=== PATIENT | female | born 1950 | race Caucasian/White ===

== ENCOUNTER 2021-07-29 09:48 | Observation (INO) ==
[2021-07-29] MEDS ORDERED: niCARdipine HCL INJ 2.5 MG/ML 10 ML AMP ONE (10:05)
[2021-07-29] MEDS ORDERED: HEPARIN (PORCINE) 1000 UNIT/ML 10 ML (CATH LAB USE ONLY) ONE (10:05)
[2021-07-29] MEDS ORDERED: MIDAZOLAM HCL 1 MG/ML 2ML VIAL ONE ×3 (10:05→11:37)
[2021-07-29] MEDS ORDERED: fentaNYL citrate 100 MCG/2 ML VIAL ONE ×3 (10:05→12:48)
[2021-07-29] MEDS ORDERED: NITROGLYCERIN/D5W 100MCG/ML 20ML SYR ONE (10:07)
[2021-07-29] MEDS ORDERED: LIDOCAINE 1% LOCAL 20 ML VIAL ONE ×2 (10:08→10:54)
--- NOTE | 2021-07-29 10:29 | History & Physical Bridge Note ---
Date of Service July 29, 2021 History & Physical Bridge Note I have examined the patient, reviewed the History & Physical and in the interval since the performance of the History & Physical I have noted the following changes of clinical significance: no changes noted I have explained the risk, benefit and intent of the procedure and she is willing to proceed.
--- NOTE | 2021-07-29 10:29 | Pre Anesthesia Assessment ---
Date of Service July 29, 2021 Pre Sedation Assessment Vital Signs Temp Pulse Resp BP Pulse Ox 07/29/21 10:22 36.9 C 84 16 180/74 H 98 Pre-Sedation Airway Assessment Smoking Status: Never smoker Short, Thick Neck: No Thyromental Distance: > or= 3.5 Finger Breadths Oral Cavity: + WNL Mallampati Class: IV ASA: ASA3 NPO Status Date of Last Intake of Fluids: 07/28/21 Time of Last Intake of Fluids: 20:00 Date of Last Intake of Solid Food: 07/28/21 Time of Last Intake of Solid Foods: 20:00 Notes The planned sedation has been discussed with the patient. Informed Consent was obtained. I have identified the patient, determined the appropriateness of sedation and have assessed the patient immediately prior to the procedure. All medicine(s) and interventions are by my order.
[2021-07-29] MEDS ORDERED: SODIUM CHLORIDE 0.9% 1000ML 1,000 ML IV SCH (10:30)
--- NOTE | 2021-07-29 11:18 | Cardiac Catheterization ---
Date of Service July 29, 2021 Cardiac Cath Report Cardiac Cath Report Procedure: 1. Coronary angiography 2. Left heart catheterization 3. Left ventriculogram History: This is a 71-year-old female with known coronary artery disease and a previous LAD stent approximately 10 years ago. She has been having classic exertional angina for approximately 6 months. In early June she underwent an exercise stress echocardiogram which was abnormal. Although the stress echocardiogram and EKG were negative she did reproduce her chest pain during exercise which limited her exercise time. I scheduled her for cardiac catheterization after that study was completed but the patient developed Covid and was sick for several weeks. She did recover and return to the office at which time her angina was accelerating. She has been referred for cardiac catheterization. Procedure summary: After informed consent was obtained the patient was brought to the cardiac catheterization lab where she was prepped and draped in the usual manner for a femoral approach. Previously the patient had an attempted right radial access but the wire could not traverse beyond the elbow. Access was obtained from the right femoral artery using a retrograde Salinger technique. Preformed 5 Vietnamese diagnostic catheters were utilized for the coronary angiograms. A 5 Vietnamese pigtail catheter was utilized for the left ventriculogram and left heart pressures. Following the procedure the patient underwent coronary intervention and was admitted in stable condition. ACC data: Start time 10:51 AM End time 11:07 AM Opening aortic pressure 165/83 Closing aortic pressure 189/92 LV pressure 190/38 Sedation 2 mg intravenous Versed IV fluid 130 cc normal saline Contrast 95 cc Visipaque Fluoroscopy time 2.8 minutes Radiation 687 mGy DAP 68.53 Fritz per centimeter squared Right dominant system AUC score 9 Coronary angiography: Selective injections of the left coronary artery revealed the left main trunk to be patent. There is a prior stent in the proximal LAD which is patent. In the midportion of the LAD there is a high-grade ulcerated stenoses the LAD continues on around the apex of the heart. The remainder the LAD is widely patent. Left circumflex artery consists principally of a large lateral marginal branch. The left circumflex artery is widely patent. Injections of the right coronary artery revealed to be dominant. The right coronary artery is widely patent. Left ventriculogram: Injections into the left ventricle reveal it to be of normal size with normal systolic function. The estimated left ventricular ejection fraction is 60%. Mitral valve is competent. The aortic root and ascending aorta are of normal size and morphology. Pulling the catheter back there is no significant gradient across the aortic valve. Summary: The previous stent in the proximal LAD is patent however, there is a high-grade ulcerated stenosis of the LAD in its mid segment. The remainder the coronary anatomy is widely patent. Normal LV function. Recommendations: Recommendations are for coronary intervention on the LAD.
--- NOTE | 2021-07-29 12:14 | Post Anesthesia Assessment ---
Date of Service July 29, 2021 Post Sedation Assessment Vital Signs Temp Pulse Resp BP Pulse Ox 07/29/21 10:22 98.4 F 84 16 180/74 H 98 Recovery Score Activity: Moves 4 extremities Respiration: Deep Breath/Cough Circulation: +/-20% PreAnes Value Consciousness: Fully Awake Oxygen Saturation: O2 needed for >90% Discharge Sedation Level of Care: Fast Track Phase II Post Sedation Plan On clinical assessment, the patient appears to have tolerated the sedation without complications. Patient is recovering as anticipated. Patient will continue to be monitored by nursing and may be discharged when sedation discharge criteria are met per below protocol. Upon Completions of procedure up to 15 minutes continue every 5 minute vital signs and the P.A.R. score; then discharge to a Phase I or Fast Track to Phase I I per the following guidelines: * Discharge Patient to appropriate Phase II area if PAR is 8 or greater or return to pre- procedure baseline. The post - procedure orders will be as directed. * If PAR score is less than 8 or not return to pre-procedure baseline then patient will follow Phase I monitoring till PAR is reached for Phase II. The Phase I may be done in procedure room or may call to secure a Phase I area. * If naloxone or flumazenil are used for reversal, hold in Phase I for continued monitoring from when last reversal dose was given for a minimum of 60 minutes or longer pending the nurse and/or physician discretion of patient condition before discharge to Phase II. Please call the Sedation Physician to re-evaluate and complete post-note for discharge to Phase II area. Do NOT discharge from procedure sedation or Phase 1 until post- sedation evaluation note is complete by procedure /sedation MD Sedation Discharge Instructions to be given to the patient at discharge to home.
--- NOTE | 2021-07-29 12:16 | Cardiac Catheterization ---
[facility] Data: Laboratory Chemical Assistant Cardiac Status Clinical evaluation leading to the procedure CAD Presenation: Positive Stress Test and Unstable angina Anginal Classification: CCS III Heart Failure: No Cardiogenic Shock within 24 Hours: No Cardiac Arrest within 24 Hours: No Imaging Studies Past 6 Months: Yes Stress Studies Past 6 Months: Yes Diagnostic Physicians Name: Galdino Mendoza MD Closure Device Percutaneous Entry Location: Femoral Closure Device: Mynx Recommendations: PCI without planned CABG PCI Indication: + Stress Test and Unstable Angina Lesion Segment Name: mid LAD Culprit Artery: Yes Stenosis Prior to Rx (%): 95 Chronic Total Occlusion: No IVUS: No FFR: No Pre-Procedure JOHNNIE Flow: 3 Previously Treated Lesion: No Lesion Complexity: Non-High/Non-C Lesion Length (mm): 15 Thrombus Present: Yes Bifurcation Lesion: Yes Guidewire Across Lesion: Stenosis Post-Procedure (%): 0 Post-Procedure JOHNNIE Flow: 3 Devices(s) Deployed: Yes Yes Intraprocedure Events Significant Disection: No Perforation: No Cardiac Cath Procedure Full Procedure Date July 29, 2021 Pre-Procedure Diagnosis Pre-Procedure Diagnosis: Angina and Positive Stress Test AUC Score AUC Score: 7 Post-Procedure Diagnosis Post-Procedure Diagnosis: Severe CAD and Successful PCI Procedure(s) Performed Procedure(s) Performed: Coronary Angiography, PTCA and Drug Eluting Stent Keyboard Instrument Repairer Galdino Mendoza MD Seo Specialist(s) Deibler Estimated Blood Loss Estimated Blood Loss: 15 Medication(s) Medication(s): Clopidogrel, Fentanyl, Lidocaine 1%, Nicardipine, Nitroglycerin and Versed Summary of Findings Indication: Abnormal stress test, accelerating angina Access: 6 Fr right common femoral artery Catheters: EBU 3.5 guide Findings: For full details of patient's coronary angiography please see cath report dictated by Dr. Maldonado. Briefly, patient found to have severe mid LAD disease at the bifurcation of small to medium diagonal. Decision to proceed with PCI. -- PCI -- Antithrombotic therapy: Heparin, clopidogrel Procedure: Left main cannulated with EBU 3.5 guide Apparatus Engineering Technologist 50 wire passed across lesion into distal vessel Mid LAD lesion predilated with 2.0 compliant balloon Dilated lesion stented with 3.0 x 18 mm [place] drug-eluting stent Stent post-dilated with 3.5 noncompliant balloon Jailed diagonal wired with harbor pilot 50 wire Ostial/proximal diagonal dilated with 2.0 balloon through stent struts. IC vasodilators administered for spasm Post procedure JOHNNIE 3 flow through LAD. Stent well expanded with minimal residual stenosis. Moderate residual ostial stenosis of diagonal but JOHNNIE-3 flow. No other apparent cardiac complications. Arterial Closure: Mynx Summary: 1. Successful PCI of mid LAD with single drug-eluting stent (3.0 x 18 mm [place]; postdilated with 3.5 NC). -PTCA of proximal jailed diagonal through stent struts with 2.0 balloon Recommendations: To PCU for continued monitoring Loaded with clopidogrel 600 mg in Laboratory Chemical Assistant Continue dual-antiplatelet therapy for at least 6 months Continue statin, and ASCVD risk factor modification Consult cardiac Rehab Hemodynamics Rest Ao:: 164/70/114 Final Ao: 152/68/120 LV: -- Recommendations Recommendations: PCI without planned CABG Specimens Specimens: None Radiation Exposure (mGy) 2649 Contrast (mls) 130 Drains Drains: none Anesthesia moderate [id number] Procedural Complication(s) None Disposition PCU I attest to the content of the Intraoperative Record and any orders documented therein. Any exceptions are noted below. [facility] Card Cath Procedure Codes Moderate Sedation Procedure 1: Sedation/Anesthesia: 15873 Mod Sedation by the same physician; Ea [id number] Minutes Stenting Procedure 1: Cardiovascular Stent Procedures: 87659 Perc transcatheter placement of intracoronary stent(s), with ang PG Care Time/CCT Total # of Minutes Spent Total Time Spent with Patient: Total time spent is greater than 50% in coordination of care (as documented) at patient's floor/unit and/or counseling patient:
[2021-07-29] MEDS ORDERED: CLOPIDOGREL BISULFATE 300 MG TAB ONE (12:25)
[2021-07-29] MEDS ORDERED: MoRPHine SULFATE 10 MG/ML CARP/VIAL IV PRN (12:33)
[2021-07-29] MEDS ORDERED: NITROGLYCERIN SL 0.4 MG/TAB TAB SL PRN (12:33)
[2021-07-29] MEDS ORDERED: ONDANSETRON INJ 2 MG/ML 2 ML VIAL IV PRN (12:33)
--- NOTE | 2021-07-29 13:03 | History & Physical Report ---
Date of Service July 29, 2021 Assessment & Plan (1) S/P cardiac cath: (2) Unstable angina: (3) CAD (coronary artery disease): Plan: Patient is 71 y/o F with PMH CAD s/p bare metal stent to LAD in 2010, HLD, CKD III presented to hospital today for cardiac catheterization. History unstable angina and had positive stress test outpatient. Today had cardiac cath with 95% stenosis to LAD s/p PCI with 1 CLINT Loaded with Plavix Continue aspirin, Plavix, recommended dual antiplatelet therapy for 6 months Continue metoprolol succinate On atorvastatin 10mg. Reported history statin intolerance in past (4) HLD (hyperlipidemia): Plan: Continue Atorvastatin, ezetimibe (5) CKD (chronic kidney disease), stage III: Plan: Baseline Cr: 1.0-1.1 Monitor renal functions, avoid nephrotoxic agents when possible DVT Prophylaxis SCDs Full Code as per discussion with pt Follows with Dr Fragoso for routine care Pt was seen and care coordinated with Dr Smith. See addendum History of Present Illness Chief Complaint: Unstable angina s/p cardiac cath Primary Care Provider: Ganga Fragoso MD Patient is 71 y/o F with PMH CAD s/p bare metal stent to LAD in 2010, HLD, CKD III presented to hospital today for cardiac catheterization. Patient with history unstable angina and had positive stress test outpatient. She has been using nitroglycerin 2-3 times a week. Today had cardiac cath with 95% stenosis to LAD s/p PCI with 1 CLINT. Post cath reported some chest discomfort which has improved. Denies fever/chills, diaphoresis, N/V/D/C, ROSSI, dizziness, syncope, vision changes, neck pain, SOB, orthopnea, palpitations, cough, sore throat, choking, otalgia, rhinorrhea, abdominal pain, paresthesias, weakness, extremity weakness, extremity edema, rashes, urinary symptoms. Allergies Allergy/AdvReac Type Severity Reaction Status Date / Time No Known Allergies Allergy Mild Unverified 01/12/18 09:16 Home Medications Medication Instructions Recorded Confirmed Type acetaminophen 500 mg tablet 1,000 mg TID 11/21/18 07/29/21 History coenzyme Q10 100 mg capsule 100 mg PO DAILY 11/21/18 07/29/21 History turmeric 500 mg DAILY 11/21/18 07/29/21 History zinc 50 mg tablet 50 mg PO DAILY 11/21/18 07/29/21 History aspirin 81 mg tablet 81 mg PO DAILY 07/29/21 07/29/21 History atorvastatin 10 mg tablet 10 mg PO HS 07/29/21 07/29/21 History cholecalciferol (vitamin D3) 25 25 mcg PO DAILY 07/29/21 07/29/21 History mcg (1,000 unit) tablet (Vitamin D3) ezetimibe 10 mg tablet 10 mg PO HS 07/29/21 07/29/21 History magnesium 1 tab PO DAILY 07/29/21 07/29/21 History metoprolol succinate 50 mg 50 mg PO DAILY 07/29/21 07/29/21 History tablet,extended release 24 hr nitroglycerin 0.4 mg sublingual 0.4 mg SUBLINGUAL UD PRN 07/29/21 07/29/21 History tablet omega-3 fatty acids-vitamin E 1 cap PO DAILY 07/29/21 07/29/21 History 1,000 mg capsule Past Med/Surg History Medical History (Updated 07/29/21 @ 13:28 by Belgica Espinoza PA-C) CAD (coronary artery disease) CKD (chronic kidney disease), stage III HLD (hyperlipidemia) Surgical History (Updated 07/29/21 @ 13:25 by Belgica Espinoza PA-C) H/O tubal ligation History of cataract surgery History of hysterectomy Hx of cardiac cath 2010- bare metal stent to LAD, [place] [facility] [place]P cardiac cath 07/29/21 - CLINT to LAD, Dr Mendoza, [facility] Family History (Updated 07/29/21 @ 13:26 by Belgica Espinoza PA-C) Brother Coronary heart disease Father Coronary heart disease Sister Breast cancer Mother Cancer Social History Smoking Status: Never smoker Hx Alcohol Use: No Hx Substance Use: No Preferred Language: Turkmen Communication Ability: Effective Dye Machine Operator Required: No Beliefs That Will Affect Care: None Current Living Situation: Spouse Other Information That Helps Us Care for You: No Feels Safe at Home: Yes Safety Concerns: Feels Safe At This Time Assistive Devices: None Review of Systems Review of Systems: All systems reviewed & are unremarkable except as noted in HPI & below Physical Exam Physical Exam: General: no distress, WDWN Head: normocephalic, atraumatic Eyes: conjunctiva non-injected, anicteric ENT: normal inspection external ears, nose, mucous membranes moist Neck: supple, trachea midline Lungs: clear, no respiratory distress, no wheezing/rhonchi/rales CV: RRR, no murmur, no pretibial edema Abd: normal BS, soft, non-tender Ext: no cyanosis, no calf tenderness Neuro: A&O x 3, no focal deficits noted, normal affect Skin: warm, dry, right groin with dressing in place that is dry Results & Data Results & Data ([facility]) Vital Signs (Past 12 Hours) Vital Signs Temp Pulse Resp BP Pulse Ox 07/29/21 12:45 72 14 171/74 H 98 07/29/21 12:30 72 16 162/74 H 99 07/29/21 12:15 72 16 167/72 H 98 07/29/21 10:22 36.9 C 84 16 180/74 H 98 Code Status & VTE Plan VTE Prophylaxis Plan VTE Prophylaxis will be ordered: Yes Supervising Physician Co-Signing Physician Notes I have seen and examined the patient and have discussed the case with the provider above. I agree with the assessment and plan as stated. 71 yo F with known CAD s/p stent in 2010 presented for elective cardiac catheterization after recent unstable angina. She had a femoral approach and post-operatively is doing well. She is reporting some substernal chest pain with radiation to her back that has been ongoing for the past several hours, however. She is just getting morphine now. Denies SOB or other symptoms. She is setting up to eat dinner now. Denies any left groin pain or swelling. She received a CLINT to LAD for 95% stenosis and underwent additional balloon angioplasty of a diagonal branch. Physical exam reveals a WNWD female in NAD who is mentating clearly and in no acute distress. Cardiac exam reveals S1/2 heard without murmurs, gallops or rubs. Extremities are warm and well-perfused. Right groin area assess with post procedure closure device in place. No post-op seroma or erythema is appreciated. Femoral pulse is 2+ intact and right leg is warm and well- perfused. Received a Plavix load 600mg in the ER. Cont with DAPT, morphine and nitro PRN for pain and daily EKG. Added Lovenox for DVT prophylaxis to start in am. Cont plan per cardiology. Jaclyn Smith DO [facility]
[2021-07-29] MEDS ORDERED: MoRPHine SULFATE 2 MG/ML CARP ONE (17:22)
[2021-07-29 19:35] LABS: Hematocrit (blood only) 35.8 % (37-47); Hemoglobin 11.7 g/dL (12.0-16.0); Mean Corpuscular Hemoglobin 31.2 pg (25-34); Mean Corpuscular Hgb Conc 32.7 g/dL (32-36); Mean Corpuscular Volume 95.5 fL (80-100); Mean Platelet Volume 9.4 fL (7.4-10.4); Platelet Count 220 K/uL (130-400); RDW Coefficient of Variation 13.6 % (11.5-14.5); RDW Standard Deviation 47.3 fL (36.4-46.3); Red Blood Count 3.75 M/uL (4.2-5.4); White Blood Count 10.15 K/uL (4.8-10.8)
[2021-07-29] MEDS: ACETAMINOPHEN 325 MG TAB PO PRN ×2 (19:35→23:25)
[2021-07-29 19:59] LABS: BUN Creatinine Ratio 23.2 (10-20); Calcium 8.8 mg/dl (8.5-10.1); Est GFR (African American) 65.5 ml/min; Est GFR (Non-African American) 56.5 ml/min; Potassium 4.1 mmol/L (3.5-5.1)
[2021-07-29 20:02] LABS: Troponin I 0.1 ng/ml (0-0.04)
[2021-07-29] MEDS ORDERED: ATORVASTATIN 10 MG TAB PO SCH (21:00)
[2021-07-29] MEDS ORDERED: EZETIMIBE 10 MG TABLET PO SCH (21:00)
[2021-07-29] MEDS: NITROGLYCERIN 2% OINTMENT 30GM TUBE EXT SCH (21:08)
[2021-07-30] MEDS: NITROGLYCERIN 2% OINTMENT 30GM TUBE EXT SCH ×2 (03:46→08:04)
[2021-07-30] MEDS: ACETAMINOPHEN 325 MG TAB PO PRN ×2 (04:00→10:47)
[2021-07-30 05:22] LABS: Basophils # (auto) 0.03 K/uL (0-0.2); Basophils % (auto) 0.5 %; Eosinophils # (auto) 0.28 K/uL (0-0.5); Eosinophils % (auto) 4.2 %; Hematocrit (blood only) 33.5 % (37-47); Immature Granulocytes # (auto) 0.01 K/uL (0.00-0.02); Immature Granulocytes % (auto) 0.2 %; Lymphocytes # (auto) 1.29 K/uL (1.2-3.4); Lymphocytes % (auto) 19.5 %; Mean Corpuscular Hemoglobin 31.4 pg (25-34); Mean Corpuscular Hgb Conc 32.8 g/dL (32-36); Mean Corpuscular Volume 95.7 fL (80-100); Mean Platelet Volume 9.6 fL (7.4-10.4); Monocytes # (auto) 0.72 K/uL (0.11-0.59); Monocytes % (auto) 10.9 %; Neutrophils # (auto) 4.29 K/uL (1.4-6.5); Neutrophils % (auto) 64.7 %; Platelet Count 223 K/uL (130-400); RDW Coefficient of Variation 13.6 % (11.5-14.5); RDW Standard Deviation 47.6 fL (36.4-46.3); White Blood Count 6.62 K/uL (4.8-10.8)
[2021-07-30 05:45] LABS: BUN Creatinine Ratio 23.5 (10-20); Calcium 8.8 mg/dl (8.5-10.1); Creatinine Clr Calc Pharmacy 60.6 ml/min; Est GFR (African American) 78.8 ml/min; Potassium 4.1 mmol/L (3.5-5.1)
[2021-07-30] MEDS ORDERED: ATORVASTATIN 10 MG TAB PO SCH (09:00)
[2021-07-30] MEDS ORDERED: OMEGA-3 (PURIFIED FISH OIL) 1 GM CAP PO SCH (09:00)
[2021-07-30] MEDS ORDERED: ENOXAPARIN INJ 40 MG/0.4 ML SYR SQ SCH (09:00)
[2021-07-30] MEDS ORDERED: ASPIRIN 81 MG ECTAB PO SCH (09:00)
[2021-07-30] MEDS ORDERED: METOPROLOL SUCC 50MG EXT REL TAB PO SCH (09:00)
[2021-07-30] MEDS ORDERED: CLOPIDOGREL BISULFATE 75 MG TAB PO SCH (09:00)
[2021-07-30] MEDS ORDERED: EZETIMIBE 10 MG TABLET PO SCH (09:00)
[2021-07-30] MEDS ORDERED: NON-FORMULARY MEDICATION (Coenzyme Q10 100 mg Capsule) PO SCH (09:00)
[2021-07-30] MEDS ORDERED: CHOLECALCIFEROL 1,000 UNITS 25 MCG TAB PO SCH (09:00)
--- NOTE | 2021-07-30 10:20 | Discharge Summary ---
Date of Service July 30, 2021 Admission HPI Per Admitting Provider Patient is 71 y/o F with PMH CAD s/p bare metal stent to LAD in 2010, HLD, CKD III presented to hospital today for cardiac catheterization. Patient with history unstable angina and had positive stress test outpatient. She has been using nitroglycerin 2-3 times a week. Today had cardiac cath with 95% stenosis to LAD s/p PCI with 1 CLINT. Post cath reported some chest discomfort which has improved. Denies fever/chills, diaphoresis, N/V/D/C, ROSSI, dizziness, syncope, vision changes, neck pain, SOB, orthopnea, palpitations, cough, sore throat, choking, otalgia, rhinorrhea, abdominal pain, paresthesias, weakness, extremity weakness, extremity edema, rashes, urinary symptoms. Admission Exam Per Admitting Provider General: no distress, WDWN Head: normocephalic, atraumatic Eyes: conjunctiva non-injected, anicteric ENT: normal inspection external ears, nose, mucous membranes moist Neck: supple, trachea midline Lungs: clear, no respiratory distress, no wheezing/rhonchi/rales CV: RRR, no murmur, no pretibial edema Abd: normal BS, soft, non-tender Ext: no cyanosis, no calf tenderness Neuro: A&O x 3, no focal deficits noted, normal affect Skin: warm, dry, right groin with dressing in place that is dry Principal Diagnosis (1) S/P cardiac cath: (2) Unstable angina: (3) CAD (coronary artery disease): (4) HLD (hyperlipidemia): (5) CKD (chronic kidney disease), stage III: Discharge Exam See below Discharge Data Allergies Allergy/AdvReac Type Severity Reaction Status Date / Time No Known Allergies Allergy Mild Unverified 01/12/18 09:16 Consultations 07/29/21 12:36 Consult Cardiac Rehabilitation Routine Procedures Performed Operation Date: 07/29/21 11:00 Actual Procedures s Cineradiography w/Routine Exam - Steve Maldonado, DO p Cath, Left with Cors and Vent - Steve Maldonado, DO p Drug Eluting Stent SGl Vessel - Parminder Mendoza MD s Placement Art Occlusive Device - Parminder Mendoza MD s POBA SGL Vessel - Parminder Mendoza MD Ordered Studies 07/29/21 07:16 CL Cath Imgs for PACS use only Routine Hospital Course (1) S/P cardiac cath: (2) Unstable angina: (3) CAD (coronary artery disease): Patient is 71 y/o F with PMH CAD s/p bare metal stent to LAD in 2010, HLD, CKD III presented to hospital today for cardiac catheterization. History unstable angina and had positive stress test outpatient. cardiac cath with 95% stenosis to LAD s/p PCI with 1 CLINT Loaded with Plavix Continue aspirin, Plavix, recommended dual antiplatelet therapy for 6 months Continue metoprolol succinate On atorvastatin 10mg. Reported history statin intolerance in past (4) HLD (hyperlipidemia): Continue Atorvastatin, ezetimibe (5) CKD (chronic kidney disease), stage III: Baseline Cr: 1.0-1.1, 0.85 today Monitor renal functions, avoid nephrotoxic agents when possible DVT Prophylaxis SCDs Full Code as per discussion with pt DC Home after seen by Dr Maldonado Total Time Total Time Spent Total Time Spent (In Minutes): 45 mins Total Time Includes: Examination of the Patient, Discharge Planning, Medication Reconciliation and Communication With Other Providers Discharge Plan Discharge Items Patient Disposition: Home - Self-Care Reason For Visit: CAD Discharge Diagnosis: (1) S/P cardiac cath: (2) Unstable angina: (3) CAD (coronary artery disease): (4) HLD (hyperlipidemia): (5) CKD (chronic kidney disease), stage III: Condition on Discharge: Good Activity: Resume your previous activity Lifting: No more than 5 pounds Lifting Comment: No lifting for 3 days, No driving for the days, you can be a passenger Bathing Comment: May Shower Sexual Activity: After one week Exercise/Sports: Wait until after follow-up appointment Driving/Machine Use: As above Weightbearing: Full weightbearing Non-emergency contact: Primary Care Provider and Frame Operator Follow-up/Referrals: Steve Maldonado DO [Frame Operator] - (Call for appointment or as directed by Dr Maldonado) Ganga Fragoso MD [Primary Care Provider] - Diet: Heart Healthy Addtl Attending Provider Instructions: None Pending Studies at Discharge: No Stand-Alone Forms: My Next Points, Smoking Cessation Medications and DC Order Prescriptions: New clopidogrel 75 mg Tablet 75 mg PO QAM Qty: 90 RF: 0 nitroglycerin [Nitrostat] 0.4 mg Tablet, Sublingual 0.4 mg sublingual PRN PRN (Reason: chest pain) Qty: 30 RF: 0 Fish Oil 340-1,000 mg Capsule 1 g PO DAILY Qty: 30 RF: 0 cholecalciferol (vitamin D3) 25 mcg (1,000 unit) Capsule 1,000 unit PO DAILY Qty: 30 RF: 0 Continued turmeric 500 mg 500 mg DAILY RF: 0 zinc 50 mg Tablet 50 mg PO DAILY RF: 0 coenzyme Q10 100 mg Capsule 100 mg PO DAILY RF: 0 acetaminophen 500 mg Tablet 1,000 mg TID RF: 0 aspirin 81 mg Tablet 81 mg PO DAILY RF: 0 atorvastatin 10 mg Tablet 10 mg PO HS RF: 0 nitroglycerin 0.4 mg Tablet, Sublingual 0.4 mg sublingual UD PRN (Reason: Chest Pain) RF: 0 ezetimibe 10 mg Tablet 10 mg PO HS RF: 0 magnesium Tablet 1 tab PO DAILY RF: 0 metoprolol succinate 50 mg Tablet Extended Release 24 Hr 50 mg PO DAILY Qty: 30 RF: 0 Discontinued Fish Oil 1,000 mg Capsule 1 cap PO DAILY RF: 0 cholecalciferol (vitamin D3) [Vitamin D3] 25 mcg (1,000 unit) Tablet 25 mcg PO DAILY RF: 0 Discharge Orders: Discharge Order (Routine); Ordered 07/30/21 Ordered By: Walter Ansari/Other Patient Handouts: Carotid Artery Stenting Dc Admission Data Admit Date/Time: 07/29/21 12:37 Attending Provider: Walter Bruno Admit Provider: Steve Maldonado Primary Care Provider: Ganga Fragoso
--- NOTE | 2021-07-30 12:06 | Cardiology Progress Note ---
Date of Service July 30, 2021 Assessment & Plan (1) S/P cardiac cath: Plan: Stent placed mid LAD Plan: The patient can be discharged home from a cardiology standpoint. She should continue her current outpatient atorvastatin and Zetia dose. She will require Plavix and aspirin for a year. Admission and Anticipated Discharge Date Admission Date: July 29, 2021 Subjective The patient had some chest pain immediately after the stent placement but thereafter and through the night she has had no chest pain and feels well. Review of Systems Review of Systems: Review of Systems: See HPI for pertinent positives. All other 10 point review of systems are negative. Physical Exam Physical Exam: General: no acute distress and stated age Head: normocephalic, no masses, lesions, tenderness or abnormalities Eyes: conjunctiva are pink and non-injected, sclera clear Neck: supple, no adenopathy, no bruits, normal jugular venous pulse, no hepatojugular reflux Chest: normal shape and normal respiratory effort Lungs: clear to auscultation and percussion Cardiac Exam: - regular rate & rhythm, no murmurs gallops or rubs - normal S1, normal S2 Pulses: 2(+) throughout Abdomen: abdomen soft, non-tender, no abnormal masses and no hepatosplenomegaly Musculoskeletal: no gait disturbance, no joint inflammation, no deforming arthritis Extremities: no edema and no cyanosis, Cath site looks good Neuro: grossly normal exam Results & Data ([facility]) Vital Signs (Past 12 Hours) Vital Signs Temp Pulse Resp BP Pulse Ox 07/30/21 11:00 77 15 146/65 H 96 07/30/21 07:57 36.8 C 83 16 130/54 L 95 Laboratory Results Laboratory Results - last 24 hr 07/29/21 07/29/21 07/29/21 11:40 12:15 16:45 WBC RBC Hgb Hct MCV MCH MCHC RDW Std Deviation RDW Coeff of Kamala Plt Count MPV Immature Gran % (Auto) Neut % (Auto) Lymph % (Auto) [place] % (Auto) Eos % (Auto) Baso % (Auto) Neut # (Auto) Lymph # (Auto) [place] # (Auto) Eos # (Auto) Baso # (Auto) Immature Gran # (Auto) Activ Coag Time Kaolin 297 H Sodium Potassium Chloride Carbon Dioxide Anion Gap BUN Creatinine Est Cr Clr Drug Dosing Est GFR ( Amer) Est GFR (Non-Af Amer) BUN/Creatinine Ratio Glucose Calcium Troponin I Triglycerides Cholesterol LDL Cholesterol, Calc VLDL Cholesterol, Calc HDL Cholesterol Cholesterol/HDL Ratio Nasal Screen MRSA (PCR) Negative SARS-CoV-2, RNA, NAAT NEGATIVE 07/29/21 07/29/21 07/30/21 19:24 19:24 04:34 WBC 10.15 RBC 3.75 L Hgb 11.7 L Hct 35.8 L MCV 95.5 MCH 31.2 MCHC 32.7 RDW Std Deviation 47.3 H RDW Coeff of Kamala 13.6 Plt Count 220 MPV 9.4 Immature Gran % (Auto) Neut % (Auto) Lymph % (Auto) [place] % (Auto) Eos % (Auto) Baso % (Auto) Neut # (Auto) Lymph # (Auto) [place] # (Auto) Eos # (Auto) Baso # (Auto) Immature Gran # (Auto) Activ Coag Time Kaolin Sodium 135 L 135 L Potassium 4.1 4.1 Chloride 104 105 Carbon Dioxide 26 25 Anion Gap 5 5 BUN 23 20 Creatinine 0.99 0.85 Est Cr Clr Drug Dosing 52.0 60.6 Est GFR ( Amer) 65.5 78.8 Est GFR (Non-Af Amer) 56.5 68.0 BUN/Creatinine Ratio 23.2 H 23.5 H Glucose 102 H 93 Calcium 8.8 8.8 Troponin I 0.10 H* Triglycerides 110 Cholesterol 131 LDL Cholesterol, Calc 66 VLDL Cholesterol, Calc 22 HDL Cholesterol 43 Cholesterol/HDL Ratio 3.0 Nasal Screen MRSA (PCR) SARS-CoV-2, RNA, NAAT 07/30/21 04:34 WBC 6.62 RBC 3.50 L Hgb 11.0 L Hct 33.5 L MCV 95.7 MCH 31.4 MCHC 32.8 RDW Std Deviation 47.6 H RDW Coeff of Kamala 13.6 Plt Count 223 MPV 9.6 Immature Gran % (Auto) 0.2 Neut % (Auto) 64.7 Lymph % (Auto) 19.5 [place] % (Auto) 10.9 Eos % (Auto) 4.2 Baso % (Auto) 0.5 Neut # (Auto) 4.29 Lymph # (Auto) 1.29 [place] # (Auto) 0.72 H Eos # (Auto) 0.28 Baso # (Auto) 0.03 Immature Gran # (Auto) 0.01 Activ Coag Time Kaolin Sodium Potassium Chloride Carbon Dioxide Anion Gap BUN Creatinine Est Cr Clr Drug Dosing Est GFR ( Amer) Est GFR (Non-Af Amer) BUN/Creatinine Ratio Glucose Calcium Troponin I Triglycerides Cholesterol LDL Cholesterol, Calc VLDL Cholesterol, Calc HDL Cholesterol Cholesterol/HDL Ratio Nasal Screen MRSA (PCR) SARS-CoV-2, RNA, NAAT Medications Administered Current Inpatient Medications Acetaminophen (Acetaminophen 325 Mg Tab) 650 mg PO Q4H PRN PRN Reason: MILD Pain (Scale 1,2,3) Stop: 08/28/21 12:32 Last Admin: 07/30/21 10:47 Dose: 650 mg Documented by: Aspirin (Aspirin 81 Mg Ectab) 81 mg PO [facility] Stop: 08/29/21 08:59 Last Admin: 07/30/21 08:00 Dose: 81 mg Documented by: Atorvastatin Calcium (Atorvastatin 10 Mg Tab) 10 mg PO [facility] Stop: 08/28/21 20:59 Last Admin: 07/29/21 21:07 Dose: 10 mg Documented by: Clopidogrel Bisulfate (Clopidogrel Bisulfate 75 Mg Tab) 75 mg PO [facility] Stop: 08/29/21 08:59 Last Admin: 07/30/21 08:00 Dose: 75 mg Documented by: Ezetimibe (Ezetimibe 10 Mg Tablet) 10 mg PO [facility] Stop: 08/28/21 20:59 Last Admin: 07/29/21 21:07 Dose: 10 mg Documented by: Enoxaparin Sodium (Enoxaparin Inj 40 Mg/0.4 Ml Syr) 40 mg SQ [facility] Stop: 08/29/21 08:59 Last Admin: 07/30/21 08:00 Dose: 40 mg Documented by: Fish Oil (Guild-3 (Purified Fish Oil) 1 Gm Cap) 1 gm PO DAILY [facility] Stop: 08/29/21 08:59 Last Admin: 07/30/21 08:01 Dose: 1 gm Documented by: Metoprolol Succinate (Metoprolol Succ 50mg Ext Rel Tab) 50 mg PO DAILY [facility] Stop: 08/29/21 08:59 Last Admin: 07/30/21 08:01 Dose: 50 mg Documented by: Morphine Sulfate (Morphine Sulfate 10 Mg/Ml Carp/Vial) 2 mg IV Q2H PRN PRN Reason: MODERATE to SEVERE Pain Stop: 08/12/21 12:32 Nitroglycerin (Nitroglycerin Sl 0.4 Mg/Tab Tab) 0.4 mg SL PRN PRN PRN Reason: Chest Pain Stop: 08/28/21 12:32 Nitroglycerin (Nitroglycerin 2% Ointment 30gm Tube) 1 inch EXT Q6H [facility] Stop: 08/28/21 20:59 Last Admin: 07/30/21 08:04 Dose: 1 inch Documented by: Ondansetron HCl (Ondansetron Inj 2 Mg/Ml 2 Ml Vial) 4 mg IV Q6H PRN PRN Reason: Nausea And Vomiting Stop: 08/28/21 12:32 Vitamin D (Cholecalciferol 1,000 Units 25 Mcg Tab) 1,000 units PO DAILY [facility] Stop: 08/29/21 08:59 Last Admin: 07/30/21 08:00 Dose: 1,000 units Documented by:
--- NOTE | 2021-07-31 06:15 | Electrocardiogram Report ---
Test Reason : Blood Pressure : / mmHG Vent. Rate : 085 BPM Atrial Rate : 085 BPM P-R Int : 214 ms QRS Dur : 080 ms QT Int : 370 ms P-R-T Axes : 058 046 061 degrees QTc Int : 440 ms Sinus rhythm with 1st degree A-V block Nonspecific T wave abnormality Cannot rule out Inferior infarct Abnormal ECG When compared with ECG of 02-JUL-2011 20:17, AR interval has increased Confirmed by Sharath Lau ([id number]) on 07/31/2021 6:15:28 AM Referred By: Steve Maldonado Confirmed By:Sharath Lau
--- NOTE | 2021-07-31 06:31 | Electrocardiogram Report ---
Test Reason : Blood Pressure : / mmHG Vent. Rate : 071 BPM Atrial Rate : 071 BPM P-R Int : 200 ms QRS Dur : 082 ms QT Int : 392 ms P-R-T Axes : 084 075 071 degrees QTc Int : 425 ms Normal sinus rhythm Normal ECG When compared with ECG of 29-Jul-2020 18:56, No significant change was found Confirmed by Sharath Lau ([id number]) on 07/31/2021 6:30:46 AM Referred By: Steve Maldonado Confirmed By:Sharath Lau
== END 2021-07-30 12:44 | disposition home or self-care (01) | DRG 247 ==
LOC: CC 09:48 → 1E 12:37 → SUATTDRO 12:37 → INTOOBSV 12:37
DX: R94.39 Abnormal result of other cardiovascular function study; Z95.5 Presence of coronary angioplasty implant and graft; Z88.8 Allergy status to other drugs, medicaments and biological substances; Z79.899 Other long term (current) drug therapy; Z79.1 Long term (current) use of non-steroidal anti-inflammatories (NSAID); N18.31 Chronic kidney disease, stage 3a; Z82.49 Family history of ischemic heart disease and other diseases of the circulatory system; Z86.16 Personal history of COVID-19; I25.110 Atherosclerotic heart disease of native coronary artery with unstable angina pectoris; Z79.82 Long term (current) use of aspirin; E78.5 Hyperlipidemia, unspecified

== ENCOUNTER 2022-02-11 11:46 | Observation (INO) ==
[2022-02-11] MEDS ORDERED: SODIUM CHLORIDE 0.9% 1000ML 500 ML IV ONE (12:43)
[2022-02-11 12:59] LABS: Basophils # (auto) 0.07 K/uL (0-0.2); Basophils % (auto) 1.1 %; Eosinophils # (auto) 0.32 K/uL (0-0.50); Eosinophils % (auto) 4.9 %; Hematocrit (blood only) 40.6 % (34.1-44.9); Hemoglobin 13.1 g/dl (12.0-16.0); Immature Granulocytes # (auto) 0.03 K/uL (0.00-0.02); Immature Granulocytes % (auto) 0.5 %; Lymphocytes # (auto) 1.37 K/uL (1.2-3.4); Lymphocytes % (auto) 21.2 %; Mean Corpuscular Hgb Conc 32.3 g/dL (32.0-36.0); Mean Platelet Volume 9.6 fL (9.4-12.3); Monocytes # (auto) 0.77 K/uL (0.24-0.82); Monocytes % (auto) 11.9 %; Neutrophils # (auto) 3.91 K/uL (1.4-6.5); Neutrophils % (auto) 60.4 %; Platelet Count 232 K/uL (130-400); RDW Coefficient of Variation 12.4 % (11.5-14.5); RDW Standard Deviation 43.8 fL (36.4-46.3); Red Blood Count 4.23 M/uL (3.93-5.22); White Blood Count 6.47 K/ul (4.8-10.8)
[2022-02-11 13:07] LABS: Partial Thromboplastin Ratio 1.1; Partial Thromboplastin Time 29.3 Seconds (21.0-31.0); Prothrombin Time 11.1 Seconds (9.0-12.0)
--- NOTE | 2022-02-11 13:08 | Emergency Department Note ---
Impression & Plan Facial numbness, Right sided weakness, Stroke-like symptoms ED Provider Note NAME: CIERA HOOVER AGE: 71 SEX: F : 1950 ARRIVES VIA: Walk-In INFORMANT: [Patient] ED PROVIDER(S): [Antoine Barnett MD] CHIEF COMPLAINT: Neurological symptoms. HISTORY OF PRESENT ILLNESS: The patient is a 71-year-old female who presents with weakness and some neurological concerns. The patient states that about 1 hour and 45 minutes ago, her right lip felt numb and cold for a few seconds. It then resolved. She then felt some pressure to the right head which also quickly resolved. A short time later, she dropped something with her right hand as if there was an electric shock sensation. This only lasted a few seconds. She felt okay for a bit and then went to stand and felt dizzy and off balance. Her right leg felt weak. This sensation also lasted a few seconds. She now feels back to baseline. The patient does take aspirin and Plavix because of some coronary stents. She has never had a stroke. The patient has been in baseline health lately. She has not had fever, chills, cough or congestion. REVIEW OF SYSTEMS: See HPI for pertinent positives and negatives. A total of ten systems were reviewed and were otherwise negative. PMHx/PSHx: See Below SOCIAL HISTORY: See Below. PHYSICAL EXAM: GENERAL: Patient is in no acute distress. HEENT: No acute trauma, normocephalic atraumatic, mucous membranes moist, no nasal congestion, no scleral icterus. NECK: No stridor, no adenopathy, no meningismus, trachea is midline. LUNGS: Clear to auscultation bilaterally, no wheeze, no rhonchi, breath sounds equal. HEART: Subtle systolic murmur, regular rate and rhythm. ABDOMEN: Soft, nontender, bowel sounds positive, no peritonitis. EXTREMITIES: No cyanosis or edema, full range of motion of all the joints without pain or difficulty, no signs for acute trauma. NEUROLOGIC: Oriented x 3, no acute motor or sensory deficits, no focal weakness. No speech slur or facial droop, no extremity drift or cerebellar dysfunction. SKIN: No rash, no jaundice, no diaphoresis. DIFFERENTIAL DIAGNOSIS: Infection, dehydration, UTI, COVID-19, metabolic abnormality, hypo/hyperglycemia, electrolyte disturbance, anemia, hypoxia, cardiac sources, i ntracerebral event, toxicologic issues, stroke, TIA, as well as other pathologies. EMERGENCY DEPARTMENT COURSE/PROCEDURES: ECG: Indication was possible stroke. The ECG shows a normal sinus rhythm with a rate of 74. There is no ST elevation, no PVCs. The QTc is 432. Continuous Cardiac Monitoring: An order was placed for continuous cardiac monitoring. The monitor shows a rate of 79 with normal sinus rhythm. MEDICAL DECISION MAKING: There is no leukocytosis or concerning anemia. There is a normal platelet count . No coagulopathy. No renal failure or significant electrolyte abnormality. No concerning liver enzyme elevation. ECG showed a normal sinus rhythm, no ischemia. Cardiac enzyme testing x1 was not consistent with acute cardiac injury. COVID test returned negative. Brain CT showed a potential small area of subacute infarct. No acute intracranial bleeding. CT angio of the head and neck showed some minimal narrowing, no significant stenosis, no clot. On my exam, there were no focal neurologic findings. Patient was asymptomatic while she was here in the ED. Patient was given IV saline, 500 cc. The patient presents with strokelike symptoms. She does have vascular disease, she has had 2 coronary stents. She is at risk for TIA/stroke. I do think further stroke work up is warranted. I did speak with the patient and case management. The on-call hospitalist was consulted. Past Med/Surg History Medical History CAD (coronary artery disease) CKD (chronic kidney disease), stage III HLD (hyperlipidemia) Surgical History (Updated 07/29/21 @ 13:25 by Belgica Espinoza PA-C) H/O tubal ligation History of cataract surgery History of hysterectomy Hx of cardiac cath 2010- bare metal stent to LAD, At [facility] [place] S/P cardiac cath 07/29/21 - [facility] to LAD, Dr Mendoza, [facility] Family History (Updated 07/29/21 @ 13:26 by Belgica Espinoza PA-C) Brother Coronary heart disease Father Coronary heart disease Sister Breast cancer Mother Cancer Social History Smoking Status: Never smoker Hx Alcohol Use: Yes Alcohol type: beer Alcohol Intake Frequency Comment: 3 daily Hx Substance Use: No Preferred Language: Yakut Communication Ability: Effective Human Resources Professional Required: No Beliefs That Will Affect Care: None marital status: Current Living Situation: Spouse Feels Safe at Home: Yes Assistive Devices: None Allergies Allergies Allergy/AdvReac Type Severity Reaction Status Date / Time No Known Allergies Allergy Mild Unverified 01/12/18 09:16 Home Meds Home Medications Medication Instructions Recorded Confirmed acetaminophen 500 mg tablet 1,000 mg TID 11/21/18 02/11/22 coenzyme Q10 100 mg capsule 100 mg PO DAILY 11/21/18 02/11/22 turmeric 500 mg DAILY 11/21/18 02/11/22 zinc 50 mg tablet 50 mg PO DAILY 11/21/18 02/11/22 aspirin 81 mg tablet 81 mg PO DAILY 07/29/21 02/11/22 atorvastatin 10 mg tablet 10 mg PO HS 07/29/21 02/11/22 ezetimibe 10 mg tablet 10 mg PO HS 07/29/21 02/11/22 magnesium 1 tab PO DAILY 07/29/21 02/11/22 nitroglycerin 0.4 mg sublingual 0.4 mg sublingual UD PRN Chest Pain 07/29/21 02/11/22 tablet Previous Rx's Medication Instructions Recorded cholecalciferol (vitamin D3) 125 5,000 unit PO DAILY #30 tabs 07/30/21 mcg (5,000 unit) tablet (Vitamin D3) clopidogrel 75 mg tablet (Plavix) 75 mg PO DAILY #90 tabs 07/30/21 metoprolol succinate 50 mg 50 mg PO DAILY #30 tabs 07/30/21 tablet,extended release 24 hr nitroglycerin 0.4 mg sublingual 0.4 mg sublingual Q5M #30 tabs 07/30/21 tablet (Nitrostat) omega [id number] oil 1,000 mg 1 cap PO DAILY #30 caps 07/30/21 (120 mg-180 mg) capsule (Fish Oil) Results & Data (ED) Vital Signs Vital Signs - 24 hr 02/11/22 11:48 02/11/22 12:10 02/11/22 12:12 Temperature 36.6 C Temperature Source Temporal Artery Scan Pulse Rate 86 Pulse Rate [Apical] 79 Pulse Rate from SpO2 Sensor Respiratory Rate 18 19 Respiratory Effort / Characteristics Non-Labored Spontaneous Respiratory Depth Normal Respiratory Pattern Regular Blood Pressure 157/87 H Blood Pressure [Right Arm] 178/72 H Blood Pressure Mean 110 Blood Pressure Mean [Right Arm] 107 Blood Pressure Position Sitting Pulse Oximetry 99 99 Oxygen Delivery Method Room Air Room Air Room Air Sepsis Recent Fever Within 48 Hours No Sepsis New/Unexplained Change in Mental Status No Sepsis Action Taken by Nursing No Action Required 02/11/22 12:30 02/11/22 13:00 02/11/22 13:00 Temperature Temperature Source Pulse Rate 80 73 Pulse Rate [Apical] Pulse Rate from SpO2 Sensor 72 Respiratory Rate 18 18 Respiratory Effort / Characteristics Respiratory Depth Respiratory Pattern Blood Pressure 163/82 H Blood Pressure [Right Arm] Blood Pressure Mean 109 Blood Pressure Mean [Right Arm] Blood Pressure Position Pulse Oximetry 97 Oxygen Delivery Method Sepsis Recent Fever Within 48 Hours Sepsis New/Unexplained Change in Mental Status Sepsis Action Taken by Nursing 02/11/22 13:31 02/11/22 13:31 02/11/22 14:00 Temperature Temperature Source Pulse Rate 74 Pulse Rate [Apical] Pulse Rate from SpO2 Sensor Respiratory Rate 14 Respiratory Effort / Characteristics Respiratory Depth Respiratory Pattern Blood Pressure 167/79 H 155/65 H Blood Pressure [Right Arm] Blood Pressure Mean 108 95 Blood Pressure Mean [Right Arm] Blood Pressure Position Pulse Oximetry Oxygen Delivery Method Sepsis Recent Fever Within 48 Hours Sepsis New/Unexplained Change in Mental Status Sepsis Action Taken by Nursing 02/11/22 14:00 02/11/22 15:42 02/11/22 14:30 Temperature Temperature Source Pulse Rate 75 Pulse Rate [Apical] 79 Pulse Rate from SpO2 Sensor Respiratory Rate 18 18 Respiratory Effort / Characteristics Respiratory Depth Respiratory Pattern Blood Pressure 151/72 H Blood Pressure [Right Arm] 187/75 H Blood Pressure Mean 98 Blood Pressure Mean [Right Arm] 112 Blood Pressure Position Pulse Oximetry 99 Oxygen Delivery Method Room Air Sepsis Recent Fever Within 48 Hours Sepsis New/Unexplained Change in Mental Status Sepsis Action Taken by Nursing 02/11/22 14:30 02/11/22 15:00 02/11/22 15:00 Temperature Temperature Source Pulse Rate 72 78 Pulse Rate [Apical] Pulse Rate from SpO2 Sensor Respiratory Rate 17 21 Respiratory Effort / Characteristics Respiratory Depth Respiratory Pattern Blood Pressure 160/84 H Blood Pressure [Right Arm] Blood Pressure Mean 109 Blood Pressure Mean [Right Arm] Blood Pressure Position Pulse Oximetry Oxygen Delivery Method Sepsis Recent Fever Within 48 Hours Sepsis New/Unexplained Change in Mental Status Sepsis Action Taken by Nursing 02/11/22 15:18 02/11/22 15:18 02/11/22 15:29 Temperature Temperature Source Pulse Rate 98 H 85 Pulse Rate [Apical] Pulse Rate from SpO2 Sensor 85 Respiratory Rate 21 14 Respiratory Effort / Characteristics Respiratory Depth Respiratory Pattern Blood Pressure 175/69 H Blood Pressure [Right Arm] Blood Pressure Mean 104 Blood Pressure Mean [Right Arm] Blood Pressure Position Pulse Oximetry 97 Oxygen Delivery Method Sepsis Recent Fever Within 48 Hours Sepsis New/Unexplained Change in Mental Status Sepsis Action Taken by Nursing 02/11/22 15:29 02/11/22 15:30 02/11/22 15:30 Temperature Temperature Source Pulse Rate 83 Pulse Rate [Apical] Pulse Rate from SpO2 Sensor 83 Respiratory Rate 21 Respiratory Effort / Characteristics Respiratory Depth Respiratory Pattern Blood Pressure 179/80 H 187/75 H Blood Pressure [Right Arm] Blood Pressure Mean 113 112 Blood Pressure Mean [Right Arm] Blood Pressure Position Pulse Oximetry 99 Oxygen Delivery Method Sepsis Recent Fever Within 48 Hours Sepsis New/Unexplained Change in Mental Status Sepsis Action Taken by Assisted Medications Current Medication List: was personally reviewed by me Laboratory Data Attestation: I reviewed the patient's lab results. Result diagrams: 02/11/22 12:32 02/11/22 12:32 Lab Results 02/11/22 02/11/22 02/11/22 Range/Units 12:10 12:32 12:32 WBC 6.47 (4.8-10.8) K/ul RBC 4.23 (3.93-5.22) M/uL Hgb 13.1 (12.0-16.0) g/dl Hct 40.6 (34.1-44.9) % MCV 96.0 (80.0-100.0) fL MCH 31.0 (25.0-34.0) pg MCHC 32.3 (32.0-36.0) g/dL RDW Std Deviation 43.8 (36.4-46.3) fL RDW Coeff of Kamala 12.4 (11.5-14.5) % Plt Count 232 (130-400) K/uL MPV 9.6 (9.4-12.3) fL Immature Gran % (Auto) 0.5 % Neut % (Auto) 60.4 % Lymph % (Auto) 21.2 % Izard % (Auto) 11.9 % Eos % (Auto) 4.9 % Baso % (Auto) 1.1 % Neut # (Auto) 3.91 (1.4-6.5) K/uL Lymph # (Auto) 1.37 (1.2-3.4) K/uL Izard # (Auto) 0.77 (0.24-0.82) K/uL Eos # (Auto) 0.32 (0-0.50) K/uL Baso # (Auto) 0.07 (0-0.2) K/uL Immature Gran # (Auto) 0.03 H (0.00-0.02) K/uL PT 11.1 (9.0-12.0) Seconds INR 1.0 (0.9-1.1) APTT 29.3 (21.0-31.0) Seconds PTT Ratio 1.1 Sodium (136-145) mmol/L Potassium (3.5-5.1) mmol/L Chloride (98-107) mmol/L Carbon Dioxide (21-32) mmol/L Anion Gap (3-11) BUN (6-23) mg/dl Creatinine (0.6-1.2) mg/dl Est Cr Clr Drug Dosing ml/min Est GFR ( Amer) ml/min Est GFR (Non-Af Amer) ml/min BUN/Creatinine Ratio (10-20) Glucose (70-99(Fasting)) mg/dl POC Glucose 148 H (70-99) mg/dl Calcium (8.5-10.1) mg/dl Magnesium (1.7-2.4) mg/dl Total Bilirubin (0.2-1.0) mg/dl AST (13-39) U/L ALT (7-52) U/L Alkaline Phosphatase (34-104) U/L Troponin I High Sens (0-14) pg/ml Total Protein (6.0-8.3) gm/dl Albumin (3.4-5.0) gm/dl Globulin (2.5-4.0) gm/dl Albumin/Globulin Ratio (0.9-2) SARS-CoV-2, RNA, NAAT (NEGATIVE) 02/11/22 02/11/22 Range/Units 12:32 13:22 WBC (4.8-10.8) K/ul RBC (3.93-5.22) M/uL Hgb (12.0-16.0) g/dl Hct (34.1-44.9) % MCV (80.0-100.0) fL MCH (25.0-34.0) pg MCHC (32.0-36.0) g/dL RDW Std Deviation (36.4-46.3) fL RDW Coeff of Kamala (11.5-14.5) % Plt Count (130-400) K/uL MPV (9.4-12.3) fL Immature Gran % (Auto) % Neut % (Auto) % Lymph % (Auto) % Izard % (Auto) % Eos % (Auto) % Baso % (Auto) % Neut # (Auto) (1.4-6.5) K/uL Lymph # (Auto) (1.2-3.4) K/uL Izard # (Auto) (0.24-0.82) K/uL Eos # (Auto) (0-0.50) K/uL Baso # (Auto) (0-0.2) K/uL Immature Gran # (Auto) (0.00-0.02) K/uL PT (9.0-12.0) Seconds INR (0.9-1.1) APTT (21.0-31.0) Seconds PTT Ratio Sodium 135 L (136-145) mmol/L Potassium 4.3 (3.5-5.1) mmol/L Chloride 102 (98-107) mmol/L Carbon Dioxide 22 (21-32) mmol/L Anion Gap 11 (3-11) BUN 21 (6-23) mg/dl Creatinine 1.06 (0.6-1.2) mg/dl Est Cr Clr Drug Dosing 49.2 ml/min Est GFR ( Amer) 60.3 ml/min Est GFR (Non-Af Amer) 52.0 ml/min BUN/Creatinine Ratio 19.8 (10-20) Glucose 133 H (70-99(Fasting)) mg/dl POC Glucose (70-99) mg/dl Calcium 9.9 (8.5-10.1) mg/dl Magnesium 2.2 (1.7-2.4) mg/dl Total Bilirubin 0.6 (0.2-1.0) mg/dl AST 16 (13-39) U/L ALT 11 (7-52) U/L Alkaline Phosphatase 86 (34-104) U/L Troponin I High Sens 2.6 (0-14) pg/ml Total Protein 7.4 (6.0-8.3) gm/dl Albumin 4.5 (3.4-5.0) gm/dl Globulin 2.9 (2.5-4.0) gm/dl Albumin/Globulin Ratio 1.6 (0.9-2) SARS-CoV-2, RNA, NAAT NEGATIVE (NEGATIVE) Administered Medications Discontinued Medications Sodium Chloride (Nss 1000ml) 500 mls @ 999 mls/hr IV .Q31M ONE Stop: 02/11/22 13:13 Last Infusion: 02/11/22 13:55 Dose: 0 mls/hr Documented By: Admin: 02/11/22 13:24 Dose: 999 mls/hr Documented By: VERONA Ioversol (Optiray 300 500ml) 120 ml IV ONCE ONE Stop: 02/11/22 15:31 Last Admin: 02/11/22 15:08 Dose: 120 ml Documented By: MALLORY Imaging Data Radiologist's Impression: Head CT 02/11/22 12:43 CT OF THE HEAD WITHOUT CONTRAST CLINICAL HISTORY: Stroke Like Symptoms . Right-sided weakness and numbness. COMPARISON STUDY: No previous studies for comparison. TECHNIQUE: Helical axial images of the head were obtained without IV contrast. Automated exposure control was utilized for the study. A dose lowering techn ique was utilized adhering to the principles of ALARA. FINDINGS: No acute intracranial hemorrhage, midline shift or mass effect is present. Scattered white matter hypodensities favor small vessel disease. An 8 mm hypodensity within the left salazar radiata is noted. The ventricular system is unremarkable. The basal cisterns are patent. No extra-axial collections are present. There are no findings to suggest acute dural sinus thrombosis or acute territorial infarct. No significant calvarial abnormalities are present. Visualized portions of the sinuses and mastoid air cells are clear. IMPRESSION: 1. No acute intracranial hemorrhage or mass effect. 2. 8 mm hypodensity within the left salazar radiata. This is indeterminate however small vessel disease is favored. A small subacute infarct could appear similar. ACT 112: Negative or not required by law. Electronically signed by: John Early M.D. 02/11/2022 3:24 PM Head CTA 02/11/22 12:43 CT ANGIOGRAM OF THE BRAIN; CT ANGIOGRAM OF THE NECK CLINICAL HISTORY: Weakness. Right-sided numbness. Stroke like symptoms. COMPARISON STUDY: Unenhanced CT of the brain performed concurrently on 02/11/2022. TECHNIQUE: Following the IV administration of 120 of Optiray 320, CT angiogram of the head and neck was performed from the aortic arch to the vertex. Images are reviewed in the axial, sagittal, and coronal planes. 3-D MIPS images are created and assessed. IV contrast was administered without complication. All measurements were calculated based on NASCET criteria. A dose lowering technique was utilized adhering to the principles of ALARA. CT DOSE: 1043.39 mGy.cm FINDINGS: Brain parenchyma: There is age-related involutional change noting mild subcortical and periventricular microangiopathic disease. There is no evidence of hemorrhage, mass effect, or acute territorial ischemia noting angiographic phase technique. There is no evidence of enhancing mass lesion on the angiogram phase images. The ventricles, sulci, and cisterns are prominent secondary to involutional change. Fritz-white matter differentiation is preserved. No extra- axial fluid collection is seen. Thoracic aorta: There is atherosclerotic calcification of the thoracic aorta. Visualized portions of the thoracic aorta are normal in caliber. The aortic arch demonstrates standard 3-vessel anatomy. Right carotid arterial system: The right common carotid artery is widely patent. There is advanced atherosclerotic plaque in the carotid bulb. This causes less than 50% luminal narrowing at the origin of the right internal carotid artery. The internal and external carotid arteries are otherwise patent. Left carotid arterial system: The left common carotid artery is widely patent. There is advanced atherosclerotic calcification of the carotid bulb. This causes less than 50% narrowing at the origin of the internal carotid artery. The internal and external carotid arteries are otherwise widely patent. Vertebral arteries: The vertebral arteries are patent bilaterally noting left- sided dominance. Subclavian arteries: Widely patent bilaterally. Intracranial vasculature: There is atherosclerotic calcification of the cavernous carotid and vertebral arteries The internal carotid arteries are patent at the skull base, as are the anterior and middle cerebral arteries bilaterally. There is atherosclerotic irregularity of the middle cerebral arteries. The vertebrobasilar system and posterior cerebral arteries are widely patent. The left vertebral artery is dominant. There is at least mild stenosis of the cavernous carotid arteries bilaterally. No aneurysm or focal vessel cut off is seen throughout the intracranial circulation. Jugular veins: Patent bilaterally. Dural sinuses: Patent. Lung apices: Partially visualized upper lobe lung parenchyma appears clear. Soft tissues: The visualized pharyngeal soft tissues are normal in appearance noting angiographic phase technique. The oropharyngeal airway appears widely patent. The salivary and thyroid glands are normal in appearance. No cervical lymphadenopathy is seen. Skeletal structures: The skeletal structures are osteopenic. The calvarium appears intact. The cervical spine is maintained noting mild spondylosis. No lytic or blastic lesion is seen. Orbits: The bony orbits are intact. Orbital contents are normal as visualized noting bilateral ocular lens implants. Sinuses and mastoids: There is mild mucosal thickening in the left maxillary antrum. The remaining paranasal sinuses are clear. The mastoid air cells are well pneumatized. IMPRESSION: 1. There is no evidence of hemorrhage, mass effect, or acute territorial ischemia noting angiographic phase technique. 2. 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 3. Otherwise unremarkable CT angiogram of the brain. 4. Atherosclerotic plaque causes less than 50% stenosis at the origin of both i nternal carotid arteries. 5. The carotid arteries are otherwise widely patent in the neck. ACT 112: Negative or not required by law. Electronically signed by: Antoine Yang M.D. 02/11/2022 3:34 PM Neck CTA 02/11/22 12:43 CT ANGIOGRAM OF THE BRAIN; CT ANGIOGRAM OF THE NECK CLINICAL HISTORY: Weakness. Right-sided numbness. Stroke like symptoms. COMPARISON STUDY: Unenhanced CT of the brain performed concurrently on 02/11/2022. TECHNIQUE: Following the IV administration of 120 of Optiray 320, CT angiogram of the head and neck was performed from the aortic arch to the vertex. Images are reviewed in the axial, sagittal, and coronal planes. 3-D MIPS images are created and assessed. IV contrast was administered without complication. All measurements were calculated based on NASCET criteria. A dose lowering technique was utilized adhering to the principles of ALARA. CT DOSE: 1043.39 mGy.cm FINDINGS: Brain parenchyma: There is age-related involutional change noting mild subcortical and periventricular microangiopathic disease. There is no evidence of hemorrhage, mass effect, or acute territorial ischemia noting angiographic phase technique. There is no evidence of enhancing mass lesion on the angiogram phase images. The ventricles, sulci, and cisterns are prominent secondary to involutional change. Fritz-white matter differentiation is preserved. No extra- axial fluid collection is seen. Thoracic aorta: There is atherosclerotic calcification of the thoracic aorta. Visualized portions of the thoracic aorta are normal in caliber. The aortic arch demonstrates standard 3-vessel anatomy. Right carotid arterial system: The right common carotid artery is widely patent. There is advanced atherosclerotic plaque in the carotid bulb. This causes less than 50% luminal narrowing at the origin of the right internal carotid artery. The internal and external carotid arteries are otherwise patent. Left carotid arterial system: The left common carotid artery is widely patent. There is advanced atherosclerotic calcification of the carotid bulb. This causes less than 50% narrowing at the origin of the internal carotid artery. The internal and external carotid arteries are otherwise widely patent. Vertebral arteries: The vertebral arteries are patent bilaterally noting left- sided dominance. Subclavian arteries: Widely patent bilaterally. Intracranial vasculature: There is atherosclerotic calcification of the cavernous carotid and vertebral arteries The internal carotid arteries are patent at the skull base, as are the anterior and middle cerebral arteries bilaterally. There is atherosclerotic irregularity of the middle cerebral arteries. The vertebrobasilar system and posterior cerebral arteries are widely patent. The left vertebral artery is dominant. There is at least mild stenosis of the cavernous carotid arteries bilaterally. No aneurysm or focal vessel cut off is seen throughout the intracranial circulation. Jugular veins: Patent bilaterally. Dural sinuses: Patent. Lung apices: Partially visualized upper lobe lung parenchyma appears clear. Soft tissues: The visualized pharyngeal soft tissues are normal in appearance noting angiographic phase technique. The oropharyngeal airway appears widely patent. The salivary and thyroid glands are normal in appearance. No cervical lymphadenopathy is seen. Skeletal structures: The skeletal structures are osteopenic. The calvarium appears intact. The cervical spine is maintained noting mild spondylosis. No lytic or blastic lesion is seen. Orbits: The bony orbits are intact. Orbital contents are normal as visualized noting bilateral ocular lens implants. Sinuses and mastoids: There is mild mucosal thickening in the left maxillary a ntrum. The remaining paranasal sinuses are clear. The mastoid air cells are well pneumatized. IMPRESSION: 1. There is no evidence of hemorrhage, mass effect, or acute territorial ischemia noting angiographic phase technique. 2. 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 3. Otherwise unremarkable CT angiogram of the brain. 4. Atherosclerotic plaque causes less than 50% stenosis at the origin of both internal carotid arteries. 5. The carotid arteries are otherwise widely patent in the neck. ACT 112: Negative or not required by law. Electronically signed by: Antoine Yang M.D. 02/11/2022 3:34 PM Discharge Plan Visit Data Chief Complaint: Neuro Symptoms/Deficit Stated Complaint: DIZZY,NUMBNESS TO RT SIDE ED Provider: Antoine Barnett Discharge Problem: Facial numbness, Right sided weakness, Stroke-like symptoms Patient Disposition: Admitted As Inpatient Condition: Good Forms Stand Alone Forms: My [facility] Chromatin Prescriptions Prescriptions: No Action turmeric 500 mg 500 mg DAILY zinc 50 mg Tablet 50 mg PO DAILY coenzyme Q10 100 mg Capsule 100 mg PO DAILY acetaminophen 500 mg Tablet 1,000 mg TID aspirin 81 mg Tablet 81 mg PO DAILY atorvastatin 10 mg Tablet 10 mg PO HS nitroglycerin 0.4 mg Tablet, Sublingual 0.4 mg sublingual UD PRN (Reason: Chest Pain) Rx Instructions: 1 tab every 5 minutes as needed for CP, up to 3 doses ezetimibe 10 mg Tablet 10 mg PO HS magnesium Tablet 1 tab PO DAILY Rx Instructions: 125mg metoprolol succinate 50 mg Tablet Extended Release 24 Hr 50 mg PO DAILY Qty: 30 0RF clopidogrel [Plavix] 75 mg tablet 75 mg PO DAILY Qty: 90 0RF nitroglycerin [Nitrostat] 0.4 mg tablet, sublingual 0.4 mg sublingual Q5M Qty: 30 0RF cholecalciferol (vitamin D3) [Vitamin D3] 125 mcg (5,000 unit) tablet 5,000 unit PO DAILY Qty: 30 0RF omega 1-pbz-[id number]-fish oil [Fish Oil] 1,000 mg (120 mg-180 mg) capsule 1 cap PO DAILY Qty: 30 0RF Referrals Referrals: Ganga Fragoso MD [Primary Care Provider] -
[2022-02-11 13:15] LABS: Troponin I High Sensitivity 2.6 pg/ml (0-14)
[2022-02-11 13:19] LABS: Albumin Globulin Ratio 1.6 (0.9-2); Albumin Level 4.5 gm/dl (3.4-5.0); BUN Creatinine Ratio 19.8 (10-20); Bilirubin,Total 0.6 mg/dl (0.2-1.0); Calcium 9.9 mg/dl (8.5-10.1); Creatinine Clr Calc Pharmacy 49.2 ml/min; Est GFR (African American) 60.3 ml/min; Globulin 2.9 gm/dl (2.5-4.0); Magnesium 2.2 mg/dl (1.7-2.4); Potassium 4.3 mmol/L (3.5-5.1); Total Protein 7.4 gm/dl (6.0-8.3)
--- NOTE | 2022-02-11 15:26 | CT Scan Report ---
CT OF THE HEAD WITHOUT CONTRAST CLINICAL HISTORY: Stroke Like Symptoms . Right-sided weakness and numbness. COMPARISON STUDY: No previous studies for comparison. TECHNIQUE: Helical axial images of the head were obtained without IV contrast. Automated exposure con trol was utilized for the study. A dose lowering technique was utilized adhering to the principles o f ALARA. FINDINGS: No acute intracranial hemorrhage, midline shift or mass effect is present. Scattered white matter hypodensities favor small vessel disease. An 8 mm hypodensity within the left salazar radiata i s noted. The ventricular system is unremarkable. The basal cisterns are patent. No extra-axial collec tions are present. There are no findings to suggest acute dural sinus thrombosis or acute territorial infarct. No significant calvarial abnormalities are present. Visualized portions of the sinuses and mastoid air cells are clear. IMPRESSION: 1. No acute intracranial hemorrhage or mass effect. 2. 8 mm hypodensity within the left salazar radiata. This is indeterminate however small vessel diseas e is favored. A small subacute infarct could appear similar. ACT 112: Negative or not required by law. Electronically signed by: John Early M.D. 02/11/2022 3:24 PM
[2022-02-11] MEDS ORDERED: OPTIRAY 300 500mL IV ONE (15:30)
--- NOTE | 2022-02-11 15:35 | CT Scan Report ---
CT ANGIOGRAM OF THE BRAIN; CT ANGIOGRAM OF THE NECK CLINICAL HISTORY: Weakness. Right-sided numbness. Stroke like symptoms. COMPARISON STUDY: Unenhanced CT of the brain performed concurrently on 02/11/2022. TECHNIQUE: Following the IV administration of 120 of Optiray 320, CT angiogram of the head and neck w as performed from the aortic arch to the vertex. Images are reviewed in the axial, sagittal, and karl nal planes. 3-D MIPS images are created and assessed. IV contrast was administered without complicati on. All measurements were calculated based on NASCET criteria. A dose lowering technique was utilize d adhering to the principles of ALARA. CT DOSE: 1043.39 mGy.cm FINDINGS: Brain parenchyma: There is age-related involutional change noting mild subcortical and periventricula r microangiopathic disease. There is no evidence of hemorrhage, mass effect, or acute territorial isc hemia noting angiographic phase technique. There is no evidence of enhancing mass lesion on the angio gram phase images. The ventricles, sulci, and cisterns are prominent secondary to involutional change . Fritz-white matter differentiation is preserved. No extra-axial fluid collection is seen. Thoracic aorta: There is atherosclerotic calcification of the thoracic aorta. Visualized portions of the thoracic aorta are normal in caliber. The aortic arch demonstrates standard 3-vessel anatomy. Right carotid arterial system: The right common carotid artery is widely patent. There is advanced at herosclerotic plaque in the carotid bulb. This causes less than 50% luminal narrowing at the origin o f the right internal carotid artery. The internal and external carotid arteries are otherwise patent. Left carotid arterial system: The left common carotid artery is widely patent. There is advanced athe rosclerotic calcification of the carotid bulb. This causes less than 50% narrowing at the origin of t he internal carotid artery. The internal and external carotid arteries are otherwise widely patent. Vertebral arteries: The vertebral arteries are patent bilaterally noting left-sided dominance. Subclavian arteries: Widely patent bilaterally. Intracranial vasculature: There is atherosclerotic calcification of the cavernous carotid and vertebr al arteries The internal carotid arteries are patent at the skull base, as are the anterior and middl e cerebral arteries bilaterally. There is atherosclerotic irregularity of the middle cerebral arterie s. The vertebrobasilar system and posterior cerebral arteries are widely patent. The left vertebral a rtery is dominant. There is at least mild stenosis of the cavernous carotid arteries bilaterally. No aneurysm or focal vessel cut off is seen throughout the intracranial circulation. Jugular veins: Patent bilaterally. Dural sinuses: Patent. Lung apices: Partially visualized upper lobe lung parenchyma appears clear. Soft tissues: The visualized pharyngeal soft tissues are normal in appearance noting angiographic pha se technique. The oropharyngeal airway appears widely patent. The salivary and thyroid glands are nor mal in appearance. No cervical lymphadenopathy is seen. Skeletal structures: The skeletal structures are osteopenic. The calvarium appears intact. The cervic al spine is maintained noting mild spondylosis. No lytic or blastic lesion is seen. Orbits: The bony orbits are intact. Orbital contents are normal as visualized noting bilateral ocular lens implants. Sinuses and mastoids: There is mild mucosal thickening in the left maxillary antrum. The remaining pa ranasal sinuses are clear. The mastoid air cells are well pneumatized. IMPRESSION: 1. There is no evidence of hemorrhage, mass effect, or acute territorial ischemia noting angiographic phase technique. 2. 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 3. Otherwise unremarkable CT angiogram of the brain. 4. Atherosclerotic plaque causes less than 50% stenosis at the origin of both internal carotid arteri es. 5. The carotid arteries are otherwise widely patent in the neck. ACT 112: Negative or not required by law. Electronically signed by: Antoine Yang M.D. 02/11/2022 3:34 PM
--- NOTE | 2022-02-11 16:25 | History & Physical Report ---
Date of Service February 11, 2022 Assessment & Plan (1) Neurological symptoms: Plan: - Admit to PCU f - Stroke order set completed, no indication for thrombolytic - CTA of the head and neck are negative - CT head reviewed and shows: 1. No acute intracranial hemorrhage or mass effect. 2. 8 mm hypodensity within the left salazar radiata. This is indeterminate however small vessel disease is favored. A small subacute infarct could appear similar. - MRI brain w/wo contrast ordered - Pt is already on aspirin and plavix so will continue - Will allow permissive hypertension with SBP 140-170, prn lebatolol IV and hydralazine ordered for HTN with SBP > 180. - Neurology consulted - PT/OT consults placed - Allow diet as patient passed bedside swallow evaluation (2) CAD (coronary artery disease): Plan: -Status post 2 stents to the LAD, last intervention done 07/[address] Mendoza -Follows with Dr. Maldonado as an outpatient -Recently stopped taking amlodipine and atorvastatin 3 weeks ago, patient is statin intolerant, continue metoprolol succinate 50 mg daily, has not needed nitroglycerin -Continue aspirin and Plavix -Diet and exercise encouraged at bedside -Cessation of alcohol use, reducing alcohol use was discussed, she drinks ~3 beers daily (3) HLD (hyperlipidemia): Plan: -Not taking statin as above (4) CKD (chronic kidney disease), stage III: Plan: -Creatinine stable at 1.06, BUN 21 DVT PPx: - teds, scds CODE: Full code Dispo: From home, likely to remain in the hospital x 1-2 days History of Present Illness Primary Care Provider: Ganga Fragoso MD This is a 71-year-old female with PMHx of CAD s/p 2 cardiac stents (CLINT to the LAD in 2010, CLINT mid LAD and PTCA July 2021), HTN, HLD, statin intolerance, CKD stage III who presents with neurological symptoms which began this morning around 1030a involving a right lower lip tingling, right face heaviness, right arm weakness where she dropped the phone and couldn't pick it up, and the right leg weakness with attempting to stand and walk, as well as dizziness. All of the symptoms lasted only a few seconds to about 1 minute earlier today and then resolved, however she was prompted to come to the ER for further work-up. She has never experienced symptoms like these before. Pt admits to drinking 3 beers daily, dean gonzales. She has never smoked or chewed tobacco. Reports that she recently stopped taking amlodipine and atorvastatin about 2 to 3 weeks ago as she felt they were not making a difference. She is historically statin intolerant and has never done well with any statin, as it causes muscle aches and pains. Discussion was held regarding diet and exercise with her at bedside and she is encouraged to participate in physical activity on a more purposeful basis. CTA of the head and neck were completed and are essentially negative, CT of the head shows show a 8 mm hypodensity within the left salazar radiata, indeterminant however small vessel disease is favored, a small subacute infarct could appear similar. Obtaining MRI. Allergies Allergy/AdvReac Type Severity Reaction Status Date / Time No Known Allergies Allergy Mild Unverified 01/12/18 09:16 Home Medications Medication Instructions Recorded Confirmed Type acetaminophen 500 mg tablet 1,000 mg TID 11/21/18 02/11/22 History coenzyme Q10 100 mg capsule 100 mg PO DAILY 11/21/18 02/11/22 History turmeric 500 mg DAILY 11/21/18 02/11/22 History zinc 50 mg tablet 50 mg PO DAILY 11/21/18 02/11/22 History aspirin 81 mg tablet 81 mg PO DAILY 07/29/21 02/11/22 History atorvastatin 10 mg tablet 10 mg PO HS 07/29/21 02/11/22 History ezetimibe 10 mg tablet 10 mg PO HS 07/29/21 02/11/22 History magnesium 1 tab PO DAILY 07/29/21 02/11/22 History nitroglycerin 0.4 mg sublingual 0.4 mg sublingual UD PRN Chest Pain 07/29/21 02/11/22 History tablet cholecalciferol (vitamin D3) 125 5,000 unit PO DAILY #30 tabs 07/30/21 02/11/22 Rx mcg (5,000 unit) tablet (Vitamin D3) clopidogrel 75 mg tablet (Plavix) 75 mg PO DAILY #90 tabs 07/30/21 02/11/22 Rx metoprolol succinate 50 mg 50 mg PO DAILY #30 tabs 07/30/21 02/11/22 Rx tablet,extended release 24 hr nitroglycerin 0.4 mg sublingual 0.4 mg sublingual Q5M #30 tabs 07/30/21 02/11/22 Rx tablet (Nitrostat) omega 5-mgj-olv-fish oil 1,000 mg 1 cap PO DAILY #30 caps 07/30/21 02/11/22 Rx (120 mg-180 mg) capsule (Fish Oil) Past Med/Surg History Medical History (Updated 02/11/22 @ 16:16 by Jud Mandujano PA-C) CAD (coronary artery disease) CKD (chronic kidney disease), stage III HLD (hyperlipidemia) Surgical History (Updated 07/29/21 @ 13:25 by Belgica Espinoza PA-C) H/O tubal ligation History of cataract surgery History of hysterectomy Hx of cardiac cath 2010- bare metal stent to LAD, At [facility] S/P cardiac cath 07/29/21 - CLINT to LAD, Dr Mendoza, [facility] Family History (Updated 07/29/21 @ 13:26 by Belgica Espinoza PA-C) Brother Coronary heart disease Father Coronary heart disease Sister Breast cancer Mother Cancer Social History (Updated 02/11/22 @ 17:04 by Jud Mandujano PA-C) Smoking Status: Never smoker Hx Alcohol Use: Yes Alcohol type: beer Alcohol Intake Frequency Comment: 3 daily Hx Substance Use: No Preferred Language: Estonian Communication Ability: Effective Yard Brakeman Required: No Beliefs That Will Affect Care: None marital status: Current Living Situation: Spouse Feels Safe at Home: Yes Assistive Devices: None Review of Systems Review of Systems: Constitutional: No fever, sweats or chills Eyes: No diplopia, no worsening or blurred vision ENT: normal hearing, no trouble swallowing Respiratory: No cough, sputum, dyspnea at rest or on exertion Cardiovascular: No chest pain, tightness or palpitations Abdomen: No pain, nausea, vomiting, diarrhea or constipation Musculoskeletal: As per HPI, currently No joint pain, calf pain, swelling Neurologic: As per HPI, currently No weakness, numbness/tingling, or balance problems Psychiatric: No anxiety or depression Skin: No rash or itch Physical Exam Physical Exam: General: awake, alert, no apparent distress Head: Normocephalic, atraumatic ENT: PERRL, EOMI, no pharyngeal exudate, mucous membranes moist Chest: Clear to auscultation, on room air, no adventitious breath sounds Cardiac: Regular rate and rhythm, no murmur, no JVD, normal peripheral pulses, good capillary refill Abdominal: NABS x 4 quadrants, soft, nondistended, nontender to palpation, no rebound or guarding Extremities: Normal inspection, no peripheral edema or erythema, calfs nontender to palpation Psych: Normal mood and affect Neuro: AAO x 3, strength intact bilaterally and rated 5/5, right arm flexion may be slightly weaker than the left however it is minimal and still rated 5/5, no gross motor deficits, speech is clear, no peripheral sensory deficits, negative pronator drift, cerebellar movements intact with rapid alternating movements. She is able to perform ppto-bc-fvwx testing, [id number] testing without difficulty. Results & Data Results & Data ([facility]) Vital Signs (Past 12 Hours) Vital Signs Temp Pulse Pulse Resp BP BP Pulse Ox 02/11/22 15:30 83 21 99 02/11/22 15:30 187/75 H 02/11/22 15:29 179/80 H 02/11/22 15:29 85 14 97 02/11/22 15:18 175/69 H 02/11/22 15:18 98 H 21 02/11/22 15:00 78 21 02/11/22 15:00 160/84 H 02/11/22 14:30 72 17 02/11/22 14:30 151/72 H 02/11/22 15:42 79 18 187/75 H 99 02/11/22 14:00 75 18 02/11/22 14:00 155/65 H 02/11/22 13:31 74 14 02/11/22 13:31 167/79 H 02/11/22 13:00 73 18 97 02/11/22 13:00 163/82 H 02/11/22 12:30 80 18 02/11/22 12:12 79 19 178/72 H 99 02/11/22 12:10 02/11/22 11:48 36.6 C 86 18 157/87 H 99 O2 Del Method 02/11/22 15:30 02/11/22 15:30 02/11/22 15:29 02/11/22 15:29 02/11/22 15:18 02/11/22 15:18 02/11/22 15:00 02/11/22 15:00 02/11/22 14:30 02/11/22 14:30 02/11/22 15:42 Room Air 02/11/22 14:00 02/11/22 14:00 02/11/22 13:31 02/11/22 13:31 02/11/22 13:00 02/11/22 13:00 02/11/22 12:30 02/11/22 12:12 Room Air 02/11/22 12:10 Room Air 02/11/22 11:48 Room Air Laboratory Results 02/11/22 02/11/22 02/11/22 13:22 12:32 12:32 WBC RBC Hgb Hct MCV MCH MCHC RDW Std Deviation RDW Coeff of Kamala Plt Count MPV Immature Gran % (Auto) Neut % (Auto) Lymph % (Auto) Esmeralda % (Auto) Eos % (Auto) Baso % (Auto) Neut # (Auto) Lymph # (Auto) Esmeralda # (Auto) Eos # (Auto) Baso # (Auto) Immature Gran # (Auto) PT 11.1 INR 1.0 APTT 29.3 PTT Ratio 1.1 Sodium 135 L Potassium 4.3 Chloride 102 Carbon Dioxide 22 Anion Gap 11 BUN 21 Creatinine 1.06 Est Cr Clr Drug Dosing 49.2 Est GFR ( Amer) 60.3 Est GFR (Non-Af Amer) 52.0 BUN/Creatinine Ratio 19.8 Glucose 133 H POC Glucose Calcium 9.9 Magnesium 2.2 Total Bilirubin 0.6 AST 16 ALT 11 Alkaline Phosphatase 86 Troponin I High Sens 2.6 Total Protein 7.4 Albumin 4.5 Globulin 2.9 Albumin/Globulin Ratio 1.6 SARS-CoV-2, RNA, NAAT NEGATIVE 02/11/22 02/11/22 12:32 12:10 WBC 6.47 RBC 4.23 Hgb 13.1 Hct 40.6 MCV 96.0 MCH 31.0 MCHC 32.3 RDW Std Deviation 43.8 RDW Coeff of Kamala 12.4 Plt Count 232 MPV 9.6 Immature Gran % (Auto) 0.5 Neut % (Auto) 60.4 Lymph % (Auto) 21.2 Esmeralda % (Auto) 11.9 Eos % (Auto) 4.9 Baso % (Auto) 1.1 Neut # (Auto) 3.91 Lymph # (Auto) 1.37 Esmeralda # (Auto) 0.77 Eos # (Auto) 0.32 Baso # (Auto) 0.07 Immature Gran # (Auto) 0.03 H PT INR APTT PTT Ratio Sodium Potassium Chloride Carbon Dioxide Anion Gap BUN Creatinine Est Cr Clr Drug Dosing Est GFR ( Amer) Est GFR (Non-Af Amer) BUN/Creatinine Ratio Glucose POC Glucose 148 H Calcium Magnesium Total Bilirubin AST ALT Alkaline Phosphatase Troponin I High Sens Total Protein Albumin Globulin Albumin/Globulin Ratio SARS-CoV-2, RNA, NAAT Diagnostic Findings Head CT 02/11/22 12:43 CT OF THE HEAD WITHOUT CONTRAST CLINICAL HISTORY: Stroke Like Symptoms . Right-sided weakness and numbness. COMPARISON STUDY: No previous studies for comparison. TECHNIQUE: Helical axial images of the head were obtained without IV contrast. Automated exposure control was utilized for the study. A dose lowering technique was utilized adhering to the principles of ALARA. FINDINGS: No acute intracranial hemorrhage, midline shift or mass effect is present. Scattered white matter hypodensities favor small vessel disease. An 8 mm hypodensity within the left salazar radiata is noted. The ventricular system is unremarkable. The basal cisterns are patent. No extra-axial collections are present. There are no findings to suggest acute dural sinus thrombosis or acute territorial infarct. No significant calvarial abnormalities are present. Visualized portions of the sinuses and mastoid air cells are clear. IMPRESSION: 1. No acute intracranial hemorrhage or mass effect. 2. 8 mm hypodensity within the left salazar radiata. This is indeterminate however small vessel disease is favored. A small subacute infarct could appear similar. ACT 112: Negative or not required by law. Electronically signed by: John Early M.D. 02/11/2022 3:24 PM Head CTA 02/11/22 12:43 CT ANGIOGRAM OF THE BRAIN; CT ANGIOGRAM OF THE NECK CLINICAL HISTORY: Weakness. Right-sided numbness. Stroke like symptoms. COMPARISON STUDY: Unenhanced CT of the brain performed concurrently on 02/11. TECHNIQUE: Following the IV administration of 120 of Optiray 320, CT angiogram of the head and neck was performed from the aortic arch to the vertex. Images are reviewed in the axial, sagittal, and coronal planes. 3-D MIPS images are created and assessed. IV contrast was administered without complication. All measurements were calculated based on NASCET criteria. A dose lowering techniqu e was utilized adhering to the principles of ALARA. CT DOSE: 1043.39 mGy.cm FINDINGS: Brain parenchyma: There is age-related involutional change noting mild subcortical and periventricular microangiopathic disease. There is no evidence of hemorrhage, mass effect, or acute territorial ischemia noting angiographic phase technique. There is no evidence of enhancing mass lesion on the angiogram phase images. The ventricles, sulci, and cisterns are prominent secondary to involutional change. Fritz-white matter differentiation is preserved. No extra- axial fluid collection is seen. Thoracic aorta: There is atherosclerotic calcification of the thoracic aorta. Visualized portions of the thoracic aorta are normal in caliber. The aortic arch demonstrates standard 3-vessel anatomy. Right carotid arterial system: The right common carotid artery is widely patent. There is advanced atherosclerotic plaque in the carotid bulb. This causes less than 50% luminal narrowing at the origin of the right internal carotid artery. The internal and external carotid arteries are otherwise patent. Left carotid arterial system: The left common carotid artery is widely patent. There is advanced atherosclerotic calcification of the carotid bulb. This causes less than 50% narrowing at the origin of the internal carotid artery. The internal and external carotid arteries are otherwise widely patent. Vertebral arteries: The vertebral arteries are patent bilaterally noting left- sided dominance. Subclavian arteries: Widely patent bilaterally. Intracranial vasculature: There is atherosclerotic calcification of the cavernous carotid and vertebral arteries The internal carotid arteries are patent at the skull base, as are the anterior and middle cerebral arteries bilaterally. There is atherosclerotic irregularity of the middle cerebral arteries. The vertebrobasilar system and posterior cerebral arteries are widely patent. The left vertebral artery is dominant. There is at least mild stenosis of the cavernous carotid arteries bilaterally. No aneurysm or focal vessel cut off is seen throughout the intracranial circulation. Jugular veins: Patent bilaterally. Dural sinuses: Patent. Lung apices: Partially visualized upper lobe lung parenchyma appears clear. Soft tissues: The visualized pharyngeal soft tissues are normal in appearance noting angiographic phase technique. The oropharyngeal airway appears widely patent. The salivary and thyroid glands are normal in appearance. No cervical lymphadenopathy is seen. Skeletal structures: The skeletal structures are osteopenic. The calvarium appears intact. The cervical spine is maintained noting mild spondylosis. No lytic or blastic lesion is seen. Orbits: The bony orbits are intact. Orbital contents are normal as visualized noting bilateral ocular lens implants. Sinuses and mastoids: There is mild mucosal thickening in the left maxillary antrum. The remaining paranasal sinuses are clear. The mastoid air cells are well pneumatized. IMPRESSION: 1. There is no evidence of hemorrhage, mass effect, or acute territorial ischemia noting angiographic phase technique. 2. 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 3. Otherwise unremarkable CT angiogram of the brain. 4. Atherosclerotic plaque causes less than 50% stenosis at the origin of both internal carotid arteries. 5. The carotid arteries are otherwise widely patent in the neck. ACT 112: Negative or not required by law. Electronically signed by: Antoine Yang M.D. 02/11/2022 3:34 PM Neck CTA 02/11/22 12:43 CT ANGIOGRAM OF THE BRAIN; CT ANGIOGRAM OF THE NECK CLINICAL HISTORY: Weakness. Right-sided numbness. Stroke like symptoms. COMPARISON STUDY: Unenhanced CT of the brain performed concurrently on 02/11/2022. TECHNIQUE: Following the IV administration of 120 of Optiray 320, CT angiogram of the head and neck was performed from the aortic arch to the vertex. Images are reviewed in the axial, sagittal, and coronal planes. 3-D MIPS images are created and assessed. IV contrast was administered without complication. All measurements were calculated based on NASCET criteria. A dose lowering technique was utilized adhering to the principles of ALARA. CT DOSE: 1043.39 mGy.cm FINDINGS: Brain parenchyma: There is age-related involutional change noting mild subcortical and periventricular microangiopathic disease. There is no evidence of hemorrhage, mass effect, or acute territorial ischemia noting angiographic phase technique. There is no evidence of enhancing mass lesion on the angiogram phase images. The ventricles, sulci, and cisterns are prominent secondary to involutional change. Fritz-white matter differentiation is preserved. No extra- axial fluid collection is seen. Thoracic aorta: There is atherosclerotic calcification of the thoracic aorta. Visualized portions of the thoracic aorta are normal in caliber. The aortic arch demonstrates standard 3-vessel anatomy. Right carotid arterial system: The right common carotid artery is widely patent. There is advanced atherosclerotic plaque in the carotid bulb. This causes less than 50% luminal narrowing at the origin of the right internal carotid artery. The internal and external carotid arteries are otherwise patent. Left carotid arterial system: The left common carotid artery is widely patent. There is advanced atherosclerotic calcification of the carotid bulb. This causes less than 50% narrowing at the origin of the internal carotid artery. The internal and external carotid arteries are otherwise widely patent. Vertebral arteries: The vertebral arteries are patent bilaterally noting left- sided dominance. Subclavian arteries: Widely patent bilaterally. Intracranial vasculature: There is atherosclerotic calcification of the cavernous carotid and vertebral arteries The internal carotid arteries are patent at the skull base, as are the anterior and middle cerebral arteries bilaterally. There is atherosclerotic irregularity of the middle cerebral arteries. The vertebrobasilar system and posterior cerebral arteries are widely patent. The left vertebral artery is dominant. There is at least mild stenosis of the cavernous carotid arteries bilaterally. No aneurysm or focal vessel cut off is seen throughout the intracranial circulation. Jugular veins: Patent bilaterally. Dural sinuses: Patent. Lung apices: Partially visualized upper lobe lung parenchyma appears clear. Soft tissues: The visualized pharyngeal soft tissues are normal in appearance noting angiographic phase technique. The oropharyngeal airway appears widely patent. The salivary and thyroid glands are normal in appearance. No cervical lymphadenopathy is seen. Skeletal structures: The skeletal structures are osteopenic. The calvarium appears intact. The cervical spine is maintained noting mild spondylosis. No lytic or blastic lesion is seen. Orbits: The bony orbits are intact. Orbital contents are normal as visualized noting bilateral ocular lens implants. Sinuses and mastoids: There is mild mucosal thickening in the left maxillary antrum. The remaining paranasal sinuses are clear. The mastoid air cells are well pneumatized. IMPRESSION: 1. There is no evidence of hemorrhage, mass effect, or acute territorial ischemia noting angiographic phase technique. 2. 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 3. Otherwise unremarkable CT angiogram of the brain. 4. Atherosclerotic plaque causes less than 50% stenosis at the origin of both internal carotid arteries. 5. The carotid arteries are otherwise widely patent in the neck. ACT 112: Negative or not required by law. Electronically signed by: Antoine Yang M.D. 02/11/2022 3:34 PM Code Status & VTE Plan Code Status Full code-discussed with the patient at bedside Supervising Physician Co-Signing Physician Notes 71-year-old lady with PMH of CAD status post 2 cardiac stents [last 1 in July 2021], HTN/medication noncompliance, HLD, statin intolerance, CKD stage III presented to the ED 02/11 with complaint of right lip tingling sensation followed by right face heaviness and then right arm weakness with weak firewall administrator and RLE weakness causing imbalance. All the symptoms resolved within seconds to 1 minute. Patient was directed to the ED for stroke evaluation. Patient reports self stopping amlodipine 4 to 5 weeks ago, and also stopped statin due to muscle and joint pain around 2 weeks ago. Admitting labs reviewed, WNL. Admitting imaging with 8 mm hypodensity within the left salazar radiata, no evidence of bleeding and CT head. Will get echo, MRI brain, neurology consult, permissive hypertension. Labetalol 5 Mg IV every 6 hours as needed for SBP greater than 180 mmHg [hold for heart rate less than 50 bpm] which can be alternated with hydralazine 10 mg IV every 6 hours as needed for SBP greater than 180 mmHg [hold for heart rate greater than 100 bpm]. Lipid profile in a.m., stroke protocol. Upon examination: GENERAL: Alert and oriented x3. NAD, on RA. Class II obese. HEENT: No pallor, no icterus. Pupils equal, round and reactive to light. Oral mucosa moist. NECK: No JVD, no neck masses. HEART: S1 and S2 heard. Regular rate and rhythm. No murmur, no gallop. RESPIRATORY SYSTEM: Normal AP diameter. No accessory muscle use. No wheezing, no crackles. ABDOMEN: Soft, bowel sounds present, nontender, no distention. CENTRAL NERVOUS SYSTEM: No facial droop. Speech is clear. Obeys simple commands. Moves extremities. No weakness noted. EXTREMITIES: No edema, no erythema seen. I have seen and examined the patient and have discussed the case with the provider above. I agree with the assessment and plan as stated.
--- NOTE | 2022-02-11 16:40 | Electrocardiogram Report ---
Test Reason : Blood Pressure : / mmHG Vent. Rate : 074 BPM Atrial Rate : 074 BPM P-R Int : 186 ms QRS Dur : 084 ms QT Int : 390 ms P-R-T Axes : 033 018 031 degrees QTc Int : 432 ms Normal sinus rhythm Normal ECG When compared with ECG of 29-JUL-2021 12:37, No significant change Confirmed by Messi Sarkar ([id number]) on 02/11/2022 4:39:55 PM Referred By: Nirali Mcghee Confirmed By:Messi Sarkar
[2022-02-11] MEDS ORDERED: ACETAMINOPHEN 500 MG TAB PO STA (17:02)
[2022-02-11] MEDS ORDERED: LORazepam 0.5 MG TAB PO STA (17:26)
[2022-02-11] MEDS ORDERED: GADOBUTROL 65ML VIAL IV ONE (19:09)
--- NOTE | 2022-02-11 19:29 | Magnetic Resonance Report ---
MRI OF THE BRAIN COMBO CLINICAL HISTORY: Strokelike symptoms. Right-sided neurological deficits. COMPARISON STUDY: CT of the brain dated 02/11/2022. TECHNIQUE: MRI of the brain was performed utilizing various T1 and T2-weighted sequences in the axial , sagittal, and coronal planes. Contrast-enhanced sequences were acquired following the administratio n of 9 cc of Gadavist. FINDINGS: Brain parenchyma: There is age-related involutional change noting mild subcortical and periventricula r microangiopathic disease. There is no hemorrhage or mass effect. There is no restricted diffusion t o suggest acute ischemia. No enhancing mass lesion is identified on the postcontrast images. Fritz-whi te matter differentiation is preserved. No extra-axial fluid collection is seen. The cerebellar tonsi ls are normal in configuration. Ventricles, sulci, and cisterns: Prominent secondary to involutional change. Pituitary and sella: Unremarkable. Intracranial vasculature: Normal flow voids are maintained at the skull base. Orbits: The bony orbits are grossly intact. Orbital contents are normal in appearance noting bilatera l ocular lens implants. Sinuses and mastoids: Mild mucosal thickening is seen in the left maxillary antrum. The remaining par anasal sinuses and the mastoid air cells are clear. Calvarium: Unremarkable. Cervical cord: Partially visualized cervical spinal cord is normal in morphology and signal intensity . IMPRESSION: No acute intracranial abnormality. ACT 112: Negative or not required by law. Electronically signed by: Antoine Yang M.D. 02/11/2022 7:26 PM
[2022-02-11] MEDS ORDERED: PHARMACIST DISCHARGE MED REC CONSULT PRN (20:35)
[2022-02-11] MEDS ORDERED: NITROGLYCERIN SL 0.4 MG/TAB TAB SL PRN (20:35)
[2022-02-11] MEDS ORDERED: hydrALAZINE HCL 20 MG/ML VIAL IV PRN (20:35)
[2022-02-11] MEDS ORDERED: METOPROLOL TARTRATE 1 MG/ML VIAL IV PRN (20:35)
[2022-02-11] MEDS ORDERED: LABETALOL HCL IV 5 MG/ML 20ML IV PRN (20:35)
[2022-02-11] MEDS ORDERED: EZETIMIBE 10 MG TABLET PO SCH (21:00)
[2022-02-11] MEDS ORDERED: ATORVASTATIN 10 MG TAB PO SCH (21:00)
[2022-02-12 07:05] LABS: Basophils # (auto) 0.09 K/uL (0-0.2); Basophils % (auto) 1.6 %; Eosinophils # (auto) 0.42 K/uL (0-0.50); Eosinophils % (auto) 7.6 %; Hematocrit (blood only) 37.6 % (34.1-44.9); Hemoglobin 12.4 g/dl (12.0-16.0); Immature Granulocytes # (auto) 0.02 K/uL (0.00-0.02); Immature Granulocytes % (auto) 0.4 %; Lymphocytes % (auto) 21.6 %; Mean Corpuscular Hemoglobin 31.1 pg (25.0-34.0); Mean Corpuscular Volume 94.2 fL (80.0-100.0); Mean Platelet Volume 9.6 fL (9.4-12.3); Monocytes # (auto) 0.68 K/uL (0.24-0.82); Monocytes % (auto) 12.2 %; Neutrophils # (auto) 3.15 K/uL (1.4-6.5); Neutrophils % (auto) 56.6 %; Platelet Count 218 K/uL (130-400); RDW Coefficient of Variation 12.4 % (11.5-14.5); RDW Standard Deviation 42.9 fL (36.4-46.3); Red Blood Count 3.99 M/uL (3.93-5.22); White Blood Count 5.56 K/ul (4.8-10.8)
[2022-02-12 07:37] LABS: BUN Creatinine Ratio 18.6 (10-20); Calcium 9.4 mg/dl (8.5-10.1); Chol HDL Ratio 4.4 (0-5); Creatinine Clr Calc Pharmacy 51.4 ml/min; Est GFR (African American) 63.2 ml/min; Est GFR (Non-African American) 54.5 ml/min; Potassium 4.1 mmol/L (3.5-5.1)
[2022-02-12 07:40] LABS: Estimated Average Glucose 111 mg/dl; Hemoglobin A1C 5.5 % (4.5-5.6)
[2022-02-12] MEDS ORDERED: METOPROLOL SUCC 50MG EXT REL TAB PO SCH (09:00)
[2022-02-12] MEDS ORDERED: CLOPIDOGREL BISULFATE 75 MG TAB PO SCH (09:00)
[2022-02-12] MEDS ORDERED: ASPIRIN 81 MG ECTAB PO SCH (09:00)
[2022-02-12] MEDS ORDERED: NON-FORMULARY MEDICATION (Magnesium Tablet) PO SCH (09:00)
[2022-02-12] MEDS ORDERED: CHOLECALCIFEROL 5,000 UNITS 125 MCG TAB PO SCH (09:00)
[2022-02-12] MEDS ORDERED: OMEGA-3 (PURIFIED FISH OIL) 1 GM CAP PO SCH (09:00)
[2022-02-12] MEDS ORDERED: NON-FORMULARY MEDICATION (Coenzyme Q10 100 mg Capsule) PO SCH (09:00)
--- NOTE | 2022-02-12 12:20 | Neurology Consultation ---
Date of Consultation February 12, 2022 Assessment & Plan (1) Facial numbness: (2) Neurological symptoms: (3) S/P cardiac cath: (4) CAD (coronary artery disease): (5) HLD (hyperlipidemia): (6) CKD (chronic kidney disease), stage III: Plan ASSESSMENT AND PLAN/RECOMMENDATIONS: 1. Transient neurological symptoms, with undetermined cause Impression: The patient had very short lasting right lip numbness, head pressure , and electric current type sensation in the right hand, and postural diaphoresis yesterday. She was back to her normal quickly. Since then, she has been symptom-free. Imaging studies did not show acute pathology including cerebrovascular accident. Even though TIA is in differential but unlikely based on history. The patient has multiple stroke risk factors. Recommendations: We will keep the patient on double antiplatelet treatment as before. Management of hyperlipidemia with goal LDL level is below 70. Echocardiogram is pending. Weight loss, daily exercise, and healthy diet. If the patient stays symptom-free, then she can be discharged home today, after echocardiogram. Follow-up with neurology clinic as needed. 2. Hyperlipidemia Impression: The patient used to be on Lipitor, but after having musculoskeletal side effects, she stopped using this medication few weeks ago. 3. Coronary artery disease status post stent placement Impression: The patient had coronary artery stent placed in July 2021. She has been on double antiplatelet treatment. Thank you for the consultation. History of Present Illness Reason for Consultation: Short lasting neurological symptoms Requesting Physician: Deidre Rosales MD Attending Physician: Deidre Rosales MD History of Present Illness The patient is a very pleasant, 71-year-old right-handed female, who presented to emergency department yesterday after she experienced short lasting neurological symptoms. Just before noon time, the patient was sitting, and noticed right side of lip numbness, which lasted for only couple seconds. Then, she noticed pressure on the right side of her head. This symptoms also was resolved quickly. A short time later, the patient felt electric current type sensation in the right hand, and dropped her phone. This symptom was also lasted for few seconds. Minutes later, after standing up, the patient felt dizzy, lightheaded, and diaphoretic, which resolved after sitting down. When she presented to the emergency department, she was symptom-free. She has not noticed any similar symptoms since then. Head CT showed some small subcortical hypodensity, and the patient was admitted for stroke work-up. Following brain M RI did not show acute intracranial pathology including cerebrovascular accident but small vessel disease related subcortical signal changes. CT angiogram of head and neck did not show any hemodynamically significant stenosis or other pathology. The patient has been symptom-free since admission. Cardiac monitoring has been showing sinus rhythm. The patient has been on double antiplatelet treatment since having coronary artery stent placement in July 2021. The patient had side effects on statin, and stopped using it few weeks ago. She has been on metoprolol for cardiac indications. She has been noncompliant on medications otherwise. She denies having any similar symptoms in the past. I have reviewed the patient's chart and visualized imaging studies personally. I have discussed the case with the patient and answer her questions in detail. Allergies Allergy/AdvReac Type Severity Reaction Status Date / Time No Known Allergies Allergy Mild Unverified 01/12/18 09:16 Home Medications Medication Instructions Recorded Confirmed Type acetaminophen 500 mg tablet 1,000 mg TID 11/21/18 02/11/22 History coenzyme Q10 100 mg capsule 100 mg PO DAILY 11/21/18 02/11/22 History turmeric 500 mg DAILY 11/21/18 02/11/22 History zinc 50 mg tablet 50 mg PO DAILY 11/21/18 02/11/22 History aspirin 81 mg tablet 81 mg PO DAILY 07/29/21 02/11/22 History atorvastatin 10 mg tablet 10 mg PO HS 07/29/21 02/11/22 History ezetimibe 10 mg tablet 10 mg PO HS 07/29/21 02/11/22 History magnesium 1 tab PO DAILY 07/29/21 02/11/22 History nitroglycerin 0.4 mg sublingual 0.4 mg sublingual UD PRN Chest Pain 07/29/21 02/11/22 History tablet cholecalciferol (vitamin D3) 125 5,000 unit PO DAILY #30 tabs 07/30/21 02/11/22 Rx mcg (5,000 unit) tablet (Vitamin D3) clopidogrel 75 mg tablet (Plavix) 75 mg PO DAILY #90 tabs 07/30/21 02/11/22 Rx metoprolol succinate 50 mg 50 mg PO DAILY #30 tabs 07/30/21 02/11/22 Rx tablet,extended release 24 hr nitroglycerin 0.4 mg sublingual 0.4 mg sublingual Q5M #30 tabs 07/30/21 02/11/22 Rx tablet (Nitrostat) omega 5-wks-nee-fish oil 1,000 mg 1 cap PO DAILY #30 caps 07/30/21 02/11/22 Rx (120 mg-180 mg) capsule (Fish Oil) Patient History Medical History CAD (coronary artery disease) CKD (chronic kidney disease), stage III HLD (hyperlipidemia) Surgical History H/O tubal ligation History of cataract surgery History of hysterectomy Hx of cardiac cath 2010- bare metal stent to LAD, At [facility] [place] S/P cardiac cath 07/29/21 - [facility] to LAD, Dr Mendoza, [facility] Family History Brother Coronary heart disease Father Coronary heart disease Sister Breast cancer Mother Cancer Social History Smoking Status: Never smoker Hx Alcohol Use: Yes Alcohol type: beer Alcohol Intake Frequency Comment: 3 daily Hx Substance Use: No Preferred Language: [place] Communication Ability: Effective Winch Stripper Required: No Beliefs That Will Affect Care: None marital status: Current Living Situation: Spouse Current Living Situation Comment: Pt lives with spouse, who she is the main caregiver for. Other Information That Helps Us Care for You: No Feels Safe at Home: Yes Safety Concerns: Feels Safe At This Time Assistive Devices: Hearing Aid - Bilateral Review of Systems Review of Systems: All systems reviewed & are unremarkable except as noted in HPI & below Physical Exam Physical Exam: General Examination: Constitutional: Well developed overweight person in no acute distress. HENT: Normal exam with inspection. CV: Hearth rhtyhm is regular. Neck: Supple, no carotid bruits. Lungs: Non-labored and comfortable breathing. Abdomen: Soft, non-tender, non-distended. Skin: No rash or ecchymosis. Extremities: No edema or cyanosis NEUROLOGICAL EXAMINATION: Mental Status: Alert and oriented to place, person and time. Cranial Nerves: II-XII are intact. No nystagmus. Funduscopy: Normal looking optic discs. Motor: 5/5 in all extremities without asymmetry. Tone: Normal without spasticity or rigidity. DTRs: 2- in all extremities without asymmetry. No Babinsky Sensory: Intact grossly to all sensory modalities. Coordination: No dysmetria with FTN testing. Speech: Fluent. Comprehension is intact. Gait: Normal. No ataxia or abnormal walking pattern. Musculoskeletal: Normal muscle bulk, no atrophy. Results & Data ([facility]) Vital Signs (Past 12 Hours) Vital Signs Temp Pulse Pulse Resp BP Pulse Ox O2 Del Method 02/12/22 08:01 36.3 C L 81 20 136/74 96 Room Air 02/12/22 02:51 36.5 C 74 18 133/70 97 Room Air Laboratory Results Laboratory Results - last 24 hr 02/11/22 02/11/22 02/11/22 12:32 12:32 12:32 WBC 6.47 RBC 4.23 Hgb 13.1 Hct 40.6 MCV 96.0 MCH 31.0 MCHC 32.3 RDW Std Deviation 43.8 RDW Coeff of Kamala 12.4 Plt Count 232 MPV 9.6 Immature Gran % (Auto) 0.5 Neut % (Auto) 60.4 Lymph % (Auto) 21.2 [place] % (Auto) 11.9 Eos % (Auto) 4.9 Baso % (Auto) 1.1 Neut # (Auto) 3.91 Lymph # (Auto) 1.37 [place] # (Auto) 0.77 Eos # (Auto) 0.32 Baso # (Auto) 0.07 Immature Gran # (Auto) 0.03 H PT 11.1 INR 1.0 APTT 29.3 PTT Ratio 1.1 Sodium 135 L Potassium 4.3 Chloride 102 Carbon Dioxide 22 Anion Gap 11 BUN 21 Creatinine 1.06 Est Cr Clr Drug Dosing 49.2 Est GFR ( Amer) 60.3 Est GFR (Non-Af Amer) 52.0 BUN/Creatinine Ratio 19.8 Glucose 133 H Estimat Average Glucose Hemoglobin A1c Calcium 9.9 Magnesium 2.2 Total Bilirubin 0.6 AST 16 ALT 11 Alkaline Phosphatase 86 Troponin I High Sens 2.6 Total Protein 7.4 Albumin 4.5 Globulin 2.9 Albumin/Globulin Ratio 1.6 Triglycerides Cholesterol LDL Cholesterol, Calc VLDL Cholesterol, Calc HDL Cholesterol Cholesterol/HDL Ratio Hepatitis C Ab (EIA) Hep C Ab Signal/Cutoff SARS-CoV-2, RNA, NAAT 02/11/22 02/11/22 02/12/22 12:32 13:22 06:12 WBC 5.56 RBC 3.99 Hgb 12.4 Hct 37.6 MCV 94.2 MCH 31.1 MCHC 33.0 RDW Std Deviation 42.9 RDW Coeff of Kamala 12.4 Plt Count 218 MPV 9.6 Immature Gran % (Auto) 0.4 Neut % (Auto) 56.6 Lymph % (Auto) 21.6 [place] % (Auto) 12.2 Eos % (Auto) 7.6 Baso % (Auto) 1.6 Neut # (Auto) 3.15 Lymph # (Auto) 1.20 [place] # (Auto) 0.68 Eos # (Auto) 0.42 Baso # (Auto) 0.09 Immature Gran # (Auto) 0.02 PT INR APTT PTT Ratio Sodium Potassium Chloride Carbon Dioxide Anion Gap BUN Creatinine Est Cr Clr Drug Dosing Est GFR ( Amer) Est GFR (Non-Af Amer) BUN/Creatinine Ratio Glucose Estimat Average Glucose Hemoglobin A1c Calcium Magnesium Total Bilirubin AST ALT Alkaline Phosphatase Troponin I High Sens Total Protein Albumin Globulin Albumin/Globulin Ratio Triglycerides Cholesterol LDL Cholesterol, Calc VLDL Cholesterol, Calc HDL Cholesterol Cholesterol/HDL Ratio Hepatitis C Ab (EIA) Pending Hep C Ab Signal/Cutoff Pending SARS-CoV-2, RNA, NAAT NEGATIVE 02/12/22 02/12/22 06:12 06:12 WBC RBC Hgb Hct MCV MCH MCHC RDW Std Deviation RDW Coeff of [place]ala Plt Count MPV Immature Gran % (Auto) Neut % (Auto) Lymph % (Auto) [place] % (Auto) Eos % (Auto) Baso % (Auto) Neut # (Auto) Lymph # (Auto) [place] # (Auto) Eos # (Auto) Baso # (Auto) Immature Gran # (Auto) PT INR APTT PTT Ratio Sodium 136 Potassium 4.1 Chloride 104 Carbon Dioxide 24 Anion Gap 8 BUN 19 Creatinine 1.02 Est Cr Clr Drug Dosing 51.4 Est GFR ( Amer) 63.2 Est GFR (Non-Af Amer) 54.5 BUN/Creatinine Ratio 18.6 Glucose 97 Estimat Average Glucose 111 Hemoglobin A1c 5.5 Calcium 9.4 Magnesium Total Bilirubin AST ALT Alkaline Phosphatase Troponin I High Sens Total Protein Albumin Globulin Albumin/Globulin Ratio Triglycerides 115 Cholesterol 216 H LDL Cholesterol, Calc 144 VLDL Cholesterol, Calc 23 HDL Cholesterol 49 Cholesterol/HDL Ratio 4.4 Hepatitis C Ab (EIA) Hep C Ab Signal/Cutoff SARS-CoV-2, RNA, NAAT Diagnostic Findings Head CT 02/11/22 12:43 CT OF THE HEAD WITHOUT CONTRAST CLINICAL HISTORY: Stroke Like Symptoms . Right-sided weakness and numbness. COMPARISON STUDY: No previous studies for comparison. TECHNIQUE: Helical axial images of the head were obtained without IV contrast. Automated exposure control was utilized for the study. A dose lowering technique was utilized adhering to the principles of ALARA. FINDINGS: No acute intracranial hemorrhage, midline shift or mass effect is present. Scattered white matter hypodensities favor small vessel disease. An 8 mm hypodensity within the left salazar radiata is noted. The ventricular system is unremarkable. The basal cisterns are patent. No extra-axial collections are present. There are no findings to suggest acute dural sinus thrombosis or acute territorial infarct. No significant calvarial abnormalities are present. Visualized portions of the sinuses and mastoid air cells are clear. IMPRESSION: 1. No acute intracranial hemorrhage or mass effect. 2. 8 mm hypodensity within the left salazar radiata. This is indeterminate however small vessel disease is favored. A small subacute infarct could appear similar. ACT 112: Negative or not required by law. Electronically signed by: John Early M.D. 02/11/2022 3:24 PM Head CTA 02/11/22 12:43 CT ANGIOGRAM OF THE BRAIN; CT ANGIOGRAM OF THE NECK CLINICAL HISTORY: Weakness. Right-sided numbness. Stroke like symptoms. COMPARISON STUDY: Unenhanced CT of the brain performed concurrently on 02/11/2022. TECHNIQUE: Following the IV administration of 120 of Optiray 320, CT angiogram of the head and neck was performed from the aortic arch to the vertex. Images are reviewed in the axial, sagittal, and coronal planes. 3-D MIPS images are created and assessed. IV contrast was administered without complication. All measurements were calculated based on NASCET criteria. A dose lowering technique was utilized adhering to the principles of ALARA. CT DOSE: 1043.39 mGy.cm FINDINGS: Brain parenchyma: There is age-related involutional change noting mild subcortical and periventricular microangiopathic disease. There is no evidence of hemorrhage, mass effect, or acute territorial ischemia noting angiographic phase technique. There is no evidence of enhancing mass lesion on the angiogram phase images. The ventricles, sulci, and cisterns are prominent secondary to involutional change. Fritz-white matter differentiation is preserved. No extra- axial fluid collection is seen. Thoracic aorta: There is atherosclerotic calcification of the thoracic aorta. Visualized portions of the thoracic aorta are normal in caliber. The aortic arch demonstrates standard 3-vessel anatomy. Right carotid arterial system: The right common carotid artery is widely patent. There is advanced atherosclerotic plaque in the carotid bulb. This causes less than 50% luminal narrowing at the origin of the right internal carotid artery. The internal and external carotid arteries are otherwise patent. Left carotid arterial system: The left common carotid artery is widely patent. There is advanced atherosclerotic calcification of the carotid bulb. This causes less than 50% narrowing at the origin of the internal carotid artery. The internal and external carotid arteries are otherwise widely patent. Vertebral arteries: The vertebral arteries are patent bilaterally noting left- sided dominance. Subclavian arteries: Widely patent bilaterally. Intracranial vasculature: There is atherosclerotic calcification of the cavernous carotid and vertebral arteries The internal carotid arteries are patent at the skull base, as are the anterior and middle cerebral arteries bilaterally. There is atherosclerotic irregularity of the middle cerebral arteries. The vertebrobasilar system and posterior cerebral arteries are widely patent. The left vertebral artery is dominant. There is at least mild stenosis of the cavernous carotid arteries bilaterally. No aneurysm or focal vessel cut off is seen throughout the intracranial circulation. Jugular veins: Patent bilaterally. Dural sinuses: Patent. Lung apices: Partially visualized upper lobe lung parenchyma appears clear. Soft tissues: The visualized pharyngeal soft tissues are normal in appearance noting angiographic phase technique. The oropharyngeal airway appears widely patent. The salivary and thyroid glands are normal in appearance. No cervical lymphadenopathy is seen. Skeletal structures: The skeletal structures are osteopenic. The calvarium appears intact. The cervical spine is maintained noting mild spondylosis. No lytic or blastic lesion is seen. Orbits: The bony orbits are intact. Orbital contents are normal as visualized noting bilateral ocular lens implants. Sinuses and mastoids: There is mild mucosal thickening in the left maxillary antrum. The remaining paranasal sinuses are clear. The mastoid air cells are well pneumatized. IMPRESSION: 1. There is no evidence of hemorrhage, mass effect, or acute territorial ischemia noting angiographic phase technique. 2. 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 3. Otherwise unremarkable CT angiogram of the brain. 4. Atherosclerotic plaque causes less than 50% stenosis at the origin of both internal carotid arteries. 5. The carotid arteries are otherwise widely patent in the neck. ACT 112: Negative or not required by law. Electronically signed by: Antoine Yang M.D. 02/11/2022 3:34 PM Neck CTA 02/11/22 12:43 CT ANGIOGRAM OF THE BRAIN; CT ANGIOGRAM OF THE NECK CLINICAL HISTORY: Weakness. Right-sided numbness. Stroke like symptoms. COMPARISON STUDY: Unenhanced CT of the brain performed concurrently on 02/11/2022. TECHNIQUE: Following the IV administration of 120 of Optiray 320, CT angiogram of the head and neck was performed from the aortic arch to the vertex. Images are reviewed in the axial, sagittal, and coronal planes. 3-D MIPS images are created and assessed. IV contrast was administered without complication. All measurements were calculated based on NASCET criteria. A dose lowering technique was utilized adhering to the principles of ALARA. CT DOSE: 1043.39 mGy.cm FINDINGS: Brain parenchyma: There is age-related involutional change noting mild subcortical and periventricular microangiopathic disease. There is no evidence of hemorrhage, mass effect, or acute territorial ischemia noting angiographic phase technique. There is no evidence of enhancing mass lesion on the angiogram phase images. The ventricles, sulci, and cisterns are prominent secondary to involutional change. Fritz-white matter differentiation is preserved. No extra- axial fluid collection is seen. Thoracic aorta: There is atherosclerotic calcification of the thoracic aorta. Visualized portions of the thoracic aorta are normal in caliber. The aortic arch demonstrates standard 3-vessel anatomy. Right carotid arterial system: The right common carotid artery is widely patent. There is advanced atherosclerotic plaque in the carotid bulb. This causes less than 50% luminal narrowing at the origin of the right internal carotid artery. The internal and external carotid arteries are otherwise patent. Left carotid arterial system: The left common carotid artery is widely patent. There is advanced atherosclerotic calcification of the carotid bulb. This causes less than 50% narrowing at the origin of the internal carotid artery. The internal and external carotid arteries are otherwise widely patent. Vertebral arteries: The vertebral arteries are patent bilaterally noting left- sided dominance. Subclavian arteries: Widely patent bilaterally. Intracranial vasculature: There is atherosclerotic calcification of the cavernous carotid and vertebral arteries The internal carotid arteries are patent at the skull base, as are the anterior and middle cerebral arteries bilaterally. There is atherosclerotic irregularity of the middle cerebral arteries. The vertebrobasilar system and posterior cerebral arteries are widely patent. The left vertebral artery is dominant. There is at least mild stenosis of the cavernous carotid arteries bilaterally. No aneurysm or focal vessel cut off is seen throughout the intracranial circulation. Jugular veins: Patent bilaterally. Dural sinuses: Patent. Lung apices: Partially visualized upper lobe lung parenchyma appears clear. Soft tissues: The visualized pharyngeal soft tissues are normal in appearance noting angiographic phase technique. The oropharyngeal airway appears widely patent. The salivary and thyroid glands are normal in appearance. No cervical lymphadenopathy is seen. Skeletal structures: The skeletal structures are osteopenic. The calvarium appears intact. The cervical spine is maintained noting mild spondylosis. No lytic or blastic lesion is seen. Orbits: The bony orbits are intact. Orbital contents are normal as visualized noting bilateral ocular lens implants. Sinuses and mastoids: There is mild mucosal thickening in the left maxillary antrum. The remaining paranasal sinuses are clear. The mastoid air cells are well pneumatized. IMPRESSION: 1. There is no evidence of hemorrhage, mass effect, or acute territorial ischemia noting angiographic phase technique. 2. 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 3. Otherwise unremarkable CT angiogram of the brain. 4. Atherosclerotic plaque causes less than 50% stenosis at the origin of both internal carotid arteries. 5. The carotid arteries are otherwise widely patent in the neck. ACT 112: Negative or not required by law. Electronically signed by: Antoine Yang M.D. 02/11/2022 3:34 PM Brain MRI 02/11/22 16:26 MRI OF THE BRAIN COMBO CLINICAL HISTORY: Strokelike symptoms. Right-sided neurological deficits. COMPARISON STUDY: CT of the brain dated 02/11/2022. TECHNIQUE: MRI of the brain was performed utilizing various T1 and T2-weighted sequences in the axial, sagittal, and coronal planes. Contrast-enhanced sequences were acquired following the administration of 9 cc of Gadavist. FINDINGS: Brain parenchyma: There is age-related involutional change noting mild subcortical and periventricular microangiopathic disease. There is no hemorrhage or mass effect. There is no restricted diffusion to suggest acute ischemia. No enhancing mass lesion is identified on the postcontrast images. Fritz-white matter differentiation is preserved. No extra-axial fluid collection is seen. The cerebellar tonsils are normal in configuration. Ventricles, sulci, and cisterns: Prominent secondary to involutional change. Pituitary and sella: Unremarkable. Intracranial vasculature: Normal flow voids are maintained at the skull base. Orbits: The bony orbits are grossly intact. Orbital contents are normal in appearance noting bilateral ocular lens implants. Sinuses and mastoids: Mild mucosal thickening is seen in the left maxillary antrum. The remaining paranasal sinuses and the mastoid air cells are clear. Calvarium: Unremarkable. Cervical cord: Partially visualized cervical spinal cord is normal in morphology and signal intensity. IMPRESSION: No acute intracranial abnormality. ACT 112: Negative or not required by law. Electronically signed by: Antoine Yang M.D. 02/11/2022 7:26 PM
--- NOTE | 2022-02-12 16:17 | Discharge Summary ---
Date of Service February 12, 2022 Admission HPI Per Admitting Provider This is a 71-year-old female with PMHx of CAD s/p 2 cardiac stents (CLINT to the LAD in 2010, CLINT mid LAD and PTCA July 2021), HTN, HLD, statin intolerance, CKD stage III who presents with neurological symptoms which began this morning around 1030a involving a right lower lip tingling, right face heaviness, right arm weakness where she dropped the phone and couldn't pick it up, and the right leg weakness with attempting to stand and walk, as well as dizziness. All of the symptoms lasted only a few seconds to about 1 minute earlier today and then resolved, however she was prompted to come to the ER for further work-up. She has never experienced symptoms like these before. Pt admits to drinking 3 beers daily, moran lite. She has never smoked or chewed tobacco. Reports that she recently stopped taking amlodipine and atorvastatin about 2 to 3 weeks ago as she felt they were not making a difference. She is historically statin intolerant and has never done well with any statin, as it causes muscle aches and pains. Discussion was held regarding diet and exercise with her at bedside and she is encouraged to participate in physical activity on a more purposeful basis. CTA of the head and neck were completed and are essentially negative, CT of the head shows show a 8 mm hypodensity within the left salazar radiata, indeterminant however small vessel disease is favored, a small subacute infarct could appear similar. Obtaining MRI. Admission Exam Per Admitting Provider GENERAL: Alert and oriented x3. NAD, on RA. Class II obese. HEENT: No pallor, no icterus. Pupils equal, round and reactive to light. Oral mucosa moist. NECK: No JVD, no neck masses. HEART: S1 and S2 heard. Regular rate and rhythm. No murmur, no gallop. RESPIRATORY SYSTEM: Normal AP diameter. No accessory muscle use. No wheezing, no crackles. ABDOMEN: Soft, bowel sounds present, nontender, no distention. CENTRAL NERVOUS SYSTEM: No facial droop. Speech is clear. Obeys simple commands. Moves extremities. No weakness noted. EXTREMITIES: No edema, no erythema seen. Principal Diagnosis likely TIA Discharge Exam GENERAL: Alert and oriented x3. NAD, on RA. Class II obese. HEENT: No pallor, no icterus. Pupils equal, round and reactive to light. Oral mucosa moist. NECK: No JVD, no neck masses. HEART: S1 and S2 heard. Regular rate and rhythm. No murmur, no gallop. RESPIRATORY SYSTEM: Normal AP diameter. No accessory muscle use. No wheezing, no crackles. ABDOMEN: Soft, bowel sounds present, nontender, no distention. CENTRAL NERVOUS SYSTEM: No facial droop. Speech is clear. Obeys simple commands. Moves extremities. No weakness noted. EXTREMITIES: No edema, no erythema seen. Discharge Data Allergies Allergy/AdvReac Type Severity Reaction Status Date / Time No Known Allergies Allergy Mild Unverified 01/12/18 09:16 Consultations 02/11/22 16:15 ED Decision to Admit Stat 02/11/22 20:35 Consult Neurology Routine Ordered Studies 02/11/22 12:43 CT angio head w con Stat CT angio neck with con Stat CT head/brain wo con Stat 02/11/22 16:26 MR brain wo/w con Routine Hospital Course (1) Facial numbness: Plan 71-year-old lady with PMH of CAD status post 2 cardiac stents [last 1 in July 2021], HTN/medication noncompliance, HLD, Lipitor statin intolerance, CKD stage III presented to the ED 02/11 with complaint of right lip tingling sensation followed by right face heaviness and then right arm weakness with weak manager billing and RLE weakness causing imbalance. All the symptoms resolved within seconds to 1 minute. Patient was directed to the ED for stroke evaluation. Patient reports self stopping amlodipine 4 to 5 weeks ago, and also stopped statin due to muscle and joint pain around 2 weeks ago. Admitting labs reviewed, WNL. MRI brain without acute findings. No evidence of bleeding in CT head. Echo without atrial septal defect. Neurology evaluated. Discussed with patient and low-dose Crestor initiated, patient to get in touch with PCP if with muscle pain/joint pain with Crestor as well to see if she qualifies for antibody treatment for her lipid level. Patient's blood pressure fairly WNL without any use of blood pressure medication while in hospital, patient to measure blood pressure regularly at home and maintain log to take to primary care physician for any necessary blood pressure medication evaluation/management. Patient being discharged to home with following instructions at the point of discharge: Follow-up with your primary care physician within 1 week time. Your LDL level was elevated from previous, since you discontinued your atorvastatin due to muscle pain, we can start you on a low-dose of a different statin as discussed at bedside. Please take the medication and be in touch with your PCP for alternatives to this medication if you have continued joint and muscle aches affecting your quality of life. Since your blood pressure were fairly normal without any use of as needed blood pressure medication while in hospital, we advise you to take your blood pressure measurements regularly at home and maintain a blood pressure log to see the patterns of your blood pressure and take it your primary care physician to see if you need any medications. Get your blood work CBC and CMP done in a week time and have the results forwarded to her primary care physician office. You can call your primary care physician office to set up the test. Recommend weight loss, daily exercise and heart healthy diet as discussed at the bedside. Take your medications as prescribed. Total Time Total Time Spent Total Time Spent (In Minutes): 35 Discharge Plan Discharge Items Patient Disposition: Home - Self-Care Reason For Visit: CVA Discharge Diagnosis: Likely TIA Condition on Discharge: Good Activity: Resume your previous activity Non-emergency contact: Primary Care Provider Call non-emergency contact if: you have any medication questions Follow-up/Referrals: Ganga Fragoso MD [Primary Care Provider] - Diet: Heart Healthy and Low Sodium (2gm) Addtl Attending Provider Instructions: Follow-up with your primary care physician within 1 week time. Your LDL level was elevated from previous, since you discontinued your atorvastatin due to muscle pain, we can start you on a low-dose of a different statin as discussed at bedside. Please take the medication and be in touch with your PCP for alternatives to this medication if you have continued joint and muscle aches affecting your quality of life. Since your blood pressure were fairly normal without any use of as needed blood pressure medication while in hospital, we advise you to take your blood pressure measurements regularly at home and maintain a blood pressure log to see the patterns of your blood pressure and take it your primary care physician to see if you need any medications. Get your blood work CBC and CMP done in a week time and have the results forwarded to her primary care physician office. You can call your primary care physician office to set up the test. Recommend weight loss, daily exercise and heart healthy diet as discussed at the bedside. Take your medications as prescribed. Pending Studies at Discharge: No Stand-Alone Forms: [facility], Smoking Cessation Medications and DC Order Prescriptions: New rosuvastatin [Crestor] 5 mg tablet 5 mg PO DAILY Qty: 30 0RF Continued turmeric 500 mg 500 mg DAILY zinc 50 mg Tablet 50 mg PO DAILY coenzyme Q10 100 mg Capsule 100 mg PO DAILY acetaminophen 500 mg Tablet 1,000 mg TID aspirin 81 mg Tablet 81 mg PO DAILY nitroglycerin 0.4 mg Tablet, Sublingual 0.4 mg sublingual UD PRN (Reason: Chest Pain) Rx Instructions: 1 tab every 5 minutes as needed for CP, up to 3 doses ezetimibe 10 mg Tablet 10 mg PO HS magnesium Tablet 1 tab PO DAILY Rx Instructions: 125mg metoprolol succinate 50 mg Tablet Extended Release 24 Hr 50 mg PO DAILY Qty: 30 0RF clopidogrel [Plavix] 75 mg tablet 75 mg PO DAILY Qty: 90 0RF nitroglycerin [Nitrostat] 0.4 mg tablet, sublingual 0.4 mg sublingual Q5M Qty: 30 0RF cholecalciferol (vitamin D3) [Vitamin D3] 125 mcg (5,000 unit) tablet 5,000 unit PO DAILY Qty: 30 0RF omega [id number] oil [Fish Oil] 1,000 mg (120 mg-180 mg) capsule 1 cap PO DAILY Qty: 30 0RF Discontinued atorvastatin 10 mg Tablet 10 mg PO HS Discharge Orders: Discharge Order (Routine); Ordered 02/12/22 Ordered By: Deidre Rosales Admission Data Admit Date/Time: 02/11/22 17:50 Attending Provider: Deidre Rosales Admit Provider: Deidre Rosales Primary Care Provider: Ganga Fragoso Other Providers: Leo Tapia ; Deidre Rosales
[2022-02-12] MEDS ORDERED: STROKE PATIENT DISCHARGE STA (16:24)
--- NOTE | 2022-02-12 17:26 | Communication Note ---
Date of Service: February 12, 2022 Code 44 attestation: 71-year-old female was admitted with strokelike symptoms and she was subsequently ruled out for any acute stroke and the symptoms resolved. She has had appropriate imaging studies and was evaluated by neurologist. She was medically stable and was discharged home by the attending. By [facility] guidelines, a determination that the admission or continued stay is not medically necessary has been made by a member of the UR committee and a physician for this hospital stay, therefore a Code 44 will be completed and the Inpatient admission will be changed to outpatient. Dr Sara Silva Member UR Committee
== END 2022-02-12 17:06 | disposition home or self-care (01) | DRG 69 ==
LOC: ED 11:46 → 2S 17:50 → INTOOBSV 17:50 → 2S 02-12 06:16